=== PATIENT | female | born 1980 | race Caucasian/White ===

== ENCOUNTER 2016-05-23 20:09 | Emergency (ER) | payer OTHER ==
[~2016-05-23 20:09] MED LIST: /DULO30CA; /DULO30CA OR; /QUET10TA OR; ADDE5TAB5 PO; ALBUTEROL XX; ATARAX OR; CELE40TA OR; CONC18TA OR; DALMANE; FLAG500T; IMUR50TA PO; LYRI100C10 PO; PERC5TAB8 OR; PROV90AE; QUET30TA OR; RISP2TAB12 OR; TRAZ300T2 OR; VITA200016 PO; XANA1TAB2 PO; XANA2TAB2; [UNRECOGNIZED DRUG - OTHER] PO; cholestyramine OR
[2016-05-23 20:52] LABS: MEAN CORPUSCULAR HEMOGLOBIN 31.8 pg (27.0-33.0); MEAN CORPUSCULAR HGB CONC 34.3 g/dl (32.0-36.5); MEAN CORPUSCULAR VOLUME 92.7 fl (80.0-96.0); RED CELL DISTRIBUTION WIDTH 12.4 % (11.5-14.5); WHITE BLOOD COUNT 15.8 K/mm3 (4.0-10.0)
[2016-05-23 21:08] LABS: POTASSIUM SERUM 4.1 MEQ/L (3.5-5.1); SODIUM LEVEL 137 MEQ/L (136-145)
[2016-05-23 21:10] LABS: CONTROL LINE HCG INT CTR LINE PRESENT
[2016-05-23 21:28] LABS: ALBUMIN 4.2 GM/DL (3.2-5.2); ALBUMIN/GLOBULIN RATIO 1.35 (1.00-1.93); ALKALINE PHOSPHATASE 56 U/L (45-117); ALT/SGPT 21 U/L (12-78); ANION GAP 9 MEQ/L (8-16); AST/SGOT 28 U/L (15-37); BILIRUBIN,DIRECT < 0.1 MG/DL (0.0-0.2); BILIRUBIN,TOTAL 0.6 MG/DL (0.2-1.0); BLOOD UREA NITROGEN 5 MG/DL (7-18); CALCIUM LEVEL 8.5 MG/DL (8.5-10.1); CARBON DIOXIDE LEVEL 24 MEQ/L (21-32); CHLORIDE LEVEL 106 MEQ/L (98-107); CREATININE FOR GFR 0.76 MG/DL (0.55-1.02); GLOMERULAR FILTRATION RATE > 60.0 (>60); GLUCOSE, FASTING 92 MG/DL (70-105); TOTAL PROTEIN 7.3 GM/DL (6.4-8.2)
--- NOTE | 2016-05-23 22:10 | REPUSA ---
CT of the head Clinical history: syncope. Comparison: 12/21/2015. Technique: Multiple axial CT images were obtained through the head without administration of contrast . Findings: The ventricles and sulci are symmetric bilaterally. There is no evidence of acute hemorrhag e or infarct. There is no midline shift, mass effect, or extra-axial fluid collection. The osseous st ructures are unremarkable. The visualized paranasal sinuses and mastoid air cells are clear. Impression: Negative study.
--- NOTE | 2016-05-23 22:58 | EDDOCDS ---
Physician Documentation [facility] Name: Gin Tubbs Age: 35 yrs Sex: Female : 1980 Arrival Date: 05/23/2016 Time: 20:09 Bed 3 Private MD: Disposition: 05/23/16 22:48 Patient has left against medical advice. Impression: Epilepsy and recurrent seizures. - Patients states they are going to Home/Self Care. - Condition is Improved. - Discharge Instructions: Seizure, Adult. Medication Reconciliation, Local Pharmacy Hours form. Follow up: Jerilyn Dumas; When: Call to arrange an appointment; Reason: To establish care. - Problem is an acute exacerbation. - Symptoms have improved. - Notes: YOU ARE ELECTING TO LEAVE AGAINST MEDICAL ADVICE. IF YOU CHANGE YOUR MIND, RETURN TO THE ER. Historical: - Allergies: Remicade; Bentyl; - Home Meds: 1. Xanax 1 mg Oral tab 1 tab four times a day 2. Ventolin Rotahaler/Rotacaps Inhl as needed 3. Percocet 5-325 mg Oral tab 1 tab every 4-6 hours 4. omeprazole 40 mg Oral cpDR 1 cap once daily 5. Adderall XR 10 mg Oral cp24 1 cap three times a day 6. Sonata 10 mg oral cap 1 cap once daily 7. trazodone 250 mg Oral tab once daily 8. Zoloft 100 mg Oral tab once daily - PMHx: Chronic Back pain; Chron's Disease; IBS; Borderline Personality Disorder; - PSHx: Tubal ligation; Colon Resection; hemorroidectomy and anal fissure; - Social history: Smoking status: Patient uses tobacco products, current every day smoker. No barriers to communication noted, The patient speaks fluent [place]se. - : The pt / caregiver states he / she is not on anticoagulants. Home medication list is obtained from the patient. - Exposure Risk Screening:: None identified. SOFTWARE APPLICATIONS DESIGNER: 05/23 20:24 LMP N/A - control method af2 Vital Signs: 20:24 BP 148 / 74; Pulse 93; Resp 18; Temp 99.4(TE); Pulse Ox 96% on R/A; Weight 87.09 kg / af2 192 lbs (R); Height 5 ft. 8 in. (172.72 cm) (R); Pain 6/10; 20:51 BP 141 / 96 (auto/); af2 20:51 Pulse 86 MON; Resp 18 S; Pulse Ox 96% on R/A; af2 20:54 BP 134 / 79 (auto/); af2 20:54 Pulse 75 MON; Resp 18 S; Pulse Ox 99% on R/A; af2 20:57 BP 140 / 80 (auto/); af2 20:57 Pulse 78 MON; Resp 18 S; Pulse Ox 99% on R/A; af2 21:00 BP 140 / 78 (auto/); af2 21:00 Pulse 75 MON; Resp 18 S; Pulse Ox 99% on R/A; af2 21:51 BP 137 / 68 (auto/); af2 21:51 Pulse 89 MON; Resp 18 S; Pulse Ox 99% on R/A; af2 20:24 Body Mass Index 29.19 (87.09 kg, 172.72 cm) af2 MDM: 20:39 Consult PFS/PSA/Custom Garment Designer ordered. mm11 20:39 Consult PFS/PSA/Custom Garment Designer: Patient's case requires discussion with on-call mm11 Psychiatrist ordered. 20:39 PSA/PFS to call Nursing Electric Range Preparer, to enter patient data on [place] Safe Act if patient mm11 involuntarily admitted or transferred for SI or HI ordered. 20:39 Confirm accurate psychiatric medication list and times of last dosage ordered. mm11 20:39 Detain Pt Until Medically/PFS Cleared ordered. mm11 20:39 IV Saline Lock ordered. mm11 20:39 NS 0.9% 1000 ml IV at bolus once ordered. mm11 20:40 Acetaminophen Level Ordered. EDMS 20:40 Basic Metabolic Profile Ordered. EDMS 20:40 Complete Blood Count Ordered. EDMS 20:40 Drug Eval Toxicology ED Only Ordered. EDMS 20:40 Ethyl Alcohol (ethanol) Ordered. EDMS 20:40 HCG,Serum Qualitative Ordered. EDMS 20:40 Liver Profile Ordered. EDMS 20:40 Salicylate Level Ordered. EDMS 20:40 Thyroid Stimulating Hormone Ordered. EDMS 20:41 ECG WITH READING ER PHYS+CARDIAG ordered. EDMS 20:41 CT Head Without Contrast Ordered. EDMS 20:42 Lactic Acid (Smith tube on ice) Ordered. EDMS 21:14 Financial registration complete. zo 21:16 [facility] Payment Agreement was scanned into [employer] and attached to record. zo 21:49 Acetaminophen Level Reviewed. mm11 21:49 Basic Metabolic Profile Reviewed. mm11 21:49 Complete Blood Count Reviewed. mm11 21:49 Salicylate Level Reviewed. mm11 21:49 Ethyl Alcohol (ethanol) Reviewed. mm11 21:49 HCG,Serum Qualitative Reviewed. mm11 21:49 Liver Profile Reviewed. mm11 21:49 Thyroid Stimulating Hormone Reviewed. mm11 21:49 Lactic Acid (Smith tube on ice) Reviewed. mm11 22:40 CT Head Without Contrast Reviewed. mm11 22:50 Consult PFS/PSA/Custom Garment Designer complete. cl 22:50 Consult PFS/PSA/Custom Garment Designer: Patient's case requires discussion with on-call cl Psychiatrist complete. 22:50 PSA/PFS to call Nursing Electric Range Preparer, to enter patient data [place] Safe [place] if patient cl involuntarily admitted or transferred for SI or HI complete. Administered Medications: 21:32 Drug: NS 0.9% 1000 ml [sodium chloride 0.9 % intravenous solution] Route: IV; Rate: af2 bolus; Site: left antecubital; Signatures: Dispatcher [employer] EDMS Jesús Gaspar PSA PSA cl Gianfranco Maldonado Matthew, DO mm11 Erin Dodson,RN RN af2 The chart was reviewed and I authenticate all verbal orders and agree with the evaluation and treatment provided.Attachments: 21:16 [facility] Payment Agreement zo MTDD
--- NOTE | 2016-05-23 22:59 | EDDOCDS ---
Nurse's Notes [facility] Name: Gin Tubbs Age: 35 yrs Sex: Female : 1980 Arrival Date: 05/23/2016 Time: 20:09 Bed 3 Private MD: Diagnosis: Epilepsy and recurrent seizures Presentation: 05/23 20:14 Presenting complaint: EMS states: initial call for seizure, pt overdosed on Xanax and af2 Percocet- bottles found empty. Pt combative at scene, will not admit to overdose. Pt not responding appropriately, states "pepperoni." Pt stating "I will not stay here.". Adult Sepsis Screening: The patient does not have new or worsening altered mentation. Patient's respiratory rate is less than 22. Systolic blood pressure is greater than 100. Patient has a qSOFA score of 0- Negative Sepsis Screen. Suicide/Homicide risk assessment- the patient denies having any suicidal and/or homicidal ideations and does not present with any other emotional, behavioral or mental health complaints. Status: Patient is not a vehicle service attendant or dependent. Transition of care: patient was not received from another setting of care. 20:14 Acuity: KATARINA Level 3 af2 20:14 Method Of Arrival: Ambulance af2 Triage Assessment: 20:25 General: Appears in no apparent distress, Behavior is cooperative. Pain: Denies pain. af2 Pt Declines HIV testing. The patient is triaged at the bedside. See Assessment in Nurses Notes section of ED record. Neurological: Level of Consciousness is awake, alert, obeys commands. Respiratory: Airway is patent Respiratory effort is even, unlabored. Derm: Skin is normal. CHEMICAL RESEARCH WORKER: 20:24 LMP N/A - control method af2 Historical: - Allergies: Remicade; Bentyl; - Home Meds: 1. Xanax 1 mg Oral tab 1 tab four times a day 2. Ventolin Rotahaler/Rotacaps Inhl as needed 3. Percocet 5-325 mg Oral tab 1 tab every 4-6 hours 4. omeprazole 40 mg Oral cpDR 1 cap once daily 5. Adderall XR 10 mg Oral cp24 1 cap three times a day 6. Sonata 10 mg oral cap 1 cap once daily 7. trazodone 250 mg Oral tab once daily 8. Zoloft 100 mg Oral tab once daily - PMHx: Chronic Back pain; Chron's Disease; IBS; Borderline Personality Disorder; - PSHx: Tubal ligation; Colon Resection; hemorroidectomy and anal fissure; - Social history: Smoking status: Patient uses tobacco products, current every day smoker. No barriers to communication noted, The patient speaks fluent [place]se. - : The pt / caregiver states he / she is not on anticoagulants. Home medication list is obtained from the patient. - Exposure Risk Screening:: None identified. Screenin:55 Screening information is obtained from the patient. Fall risk: No risks identified. af2 Assistance ADL's: requires no assistance with activities of daily living. Abuse/DV Screen: The patient / caregiver reports he/she is: not in a situation that causes fear, pain or injury. Nutritional screening: No deficits noted. Advance Directives: Currently, there is no health care proxy. home support is adequate. Assessment: 20:54 General: Appears in no apparent distress, Behavior is cooperative, pt shouts "I af2 remember something, I was doing the dishes and felt dizzy. Then I had the seizure.". Cardiovascular: Rhythm is sinus rhythm No ectopy. Respiratory: Airway is patent Respiratory effort is even, unlabored. Derm: Skin is normal. 21:32 General: Appears in no apparent distress, Behavior is cooperative, pt seated on af2 stretcher, SO at bedside.. Cardiovascular: Rhythm is sinus rhythm No ectopy. Respiratory: Airway is patent Respiratory effort is even, unlabored. Derm: Skin is normal. 22:02 General: Appears in no apparent distress, Behavior is cooperative. Neurological: Level af2 of Consciousness is awake, alert, obeys commands, Oriented to person, place, time. Cardiovascular: Rhythm is sinus rhythm No ectopy. Respiratory: Airway is patent Respiratory effort is even, unlabored, Respiratory pattern is regular, symmetrical, Breath sounds are clear bilaterally. Derm: Skin is normal. 22:56 General: Appears in no apparent distress, comfortable, Behavior is cooperative. af2 Neurological: Level of Consciousness is awake, alert, obeys commands. Respiratory: Airway is patent Respiratory effort is even, unlabored. Derm: Skin is normal. Vital Signs: 20:24 BP 148 / 74; Pulse 93; Resp 18; Temp 99.4(TE); Pulse Ox 96% on R/A; Weight 87.09 kg af2 (R); Height 5 ft. 8 in. (172.72 cm) (R); Pain 6/10; 20:51 BP 141 / 96 (auto/); af2 20:51 Pulse 86 MON; Resp 18 S; Pulse Ox 96% on R/A; af2 20:54 BP 134 / 79 (auto/); af2 20:54 Pulse 75 MON; Resp 18 S; Pulse Ox 99% on R/A; af2 20:57 BP 140 / 80 (auto/); af2 20:57 Pulse 78 MON; Resp 18 S; Pulse Ox 99% on R/A; af2 21:00 BP 140 / 78 (auto/); af2 21:00 Pulse 75 MON; Resp 18 S; Pulse Ox 99% on R/A; af2 21:51 BP 137 / 68 (auto/); af2 21:51 Pulse 89 MON; Resp 18 S; Pulse Ox 99% on R/A; af2 20:24 Body Mass Index 29.19 (87.09 kg, 172.72 cm) af2 Vitals: 20:24 Log In Time N/A - ambulance arrival. af2 ED Course: 20:10 Erin DodsonRN is Primary Nurse. jlm 20:10 Patient visited by Ophelia Chiu, Billing Specialist. jlm 20:10 Patient moved to [facility] 20:16 Suhail Kaba DO is Attending Physician. mm11 20:16 Patient visited by Suhail Kaba DO. mm11 20:19 Triage Initiated af2 20:25 Patient visited by Erin Dodson RN. af2 20:38 Patient visited by Suhail Kaba DO. mm11 20:48 Pt greeted and oriented to ED. Patient advised of names of staff involved in care, rs6 location of call [place], wait times and NPO status. Accompanied by Law Enforcement, Patient has correct armband on for positive identification. Placed in psych safe attire. Bed in low position. Call light in reach. Side rails up X2. Property removed. playground monitor on. Pulse ox on. NIBP on. 20:48 EKG done. (by ED staff). Reviewed by Suhail Kaba DO. rs6 20:55 Patient visited by Erin Dodson RN. af2 20:55 Inserted saline lock: 20 gauge in left antecubital area and blood collected. The af2 patient tolerated the procedure well. 21:16 [facility] Payment Agreement was scanned into [employer] and attached to record. zo 21:34 Patient visited by Erin Dodson RN. af2 22:04 Patient visited by Erin Dodson RN. af2 22:22 CT Head Without Contrast Returned. EDMS 22:40 Patient visited by Suhail Kaba DO. mm11 22:47 Jerilyn Dumas is Referral Physician. mm11 22:57 Discontinued IV lock intact, bleeding controlled, pressure dressing applied, No af2 redness/swelling at site. No procedures done that require assistance. Administered Medications: 21:32 Drug: NS 0.9% 1000 ml [sodium chloride 0.9 % intravenous solution] Route: IV; Rate: af2 bolus; Site: left antecubital; Order Results: Lab Order: Acetaminophen Level; SPEC'M 05/23/16 20:44 Test: ACETAMINOPHEN LEVEL; Value: < 2.0; Range: 10.0-30.0; Abnormal: Below low normal; Units: UG/ML; Status: F Lab Order: Basic Metabolic Profile; SPEC'M 05/23/16 20:44 Test: GLUCOSE, FASTING; Value: 92; Range: 70-105; Units: MG/DL; Status: F Test: BLOOD UREA NITROGEN; Value: 5; Range: 7-18; Abnormal: Below low normal; Units: MG/DL; Status: F Test: CREATININE FOR GFR; Value: 0.76; Range: 0.55-1.02; Units: MG/DL; Status: F Test: SODIUM LEVEL; Value: 137; Range: 136-145; Units: MEQ/L; Status: F Test: POTASSIUM SERUM; Value: 4.1; Range: 3.5-5.1; Units: MEQ/L; Status: F Test: CHLORIDE LEVEL; Range: 98-107; Units: MEQ/L; Status: I Test: CARBON DIOXIDE LEVEL; Range: 21-32; Units: MEQ/L; Status: I Test: ANION GAP; Range: 8-16; Units: MEQ/L; Status: I Test: CALCIUM LEVEL; Range: 8.5-10.1; Units: MG/DL; Status: I Test: GLOMERULAR FILTRATION RATE; Value: > 60.0; Range: >60; Status: F Test: SODIUM LEVEL; Value: 137; Range: 136-145; Units: MEQ/L; Status: F Test: POTASSIUM SERUM; Value: 4.1; Range: 3.5-5.1; Units: MEQ/L; Status: F Test: CHLORIDE LEVEL; Value: 106; Range: 98-107; Units: MEQ/L; Status: F Test: CARBON DIOXIDE LEVEL; Value: 24; Range: 21-32; Units: MEQ/L; Status: F Test: ANION GAP; Value: 9; Range: 8-16; Units: MEQ/L; Status: F Test: CALCIUM LEVEL; Value: 8.5; Range: 8.5-10.1; Units: MG/DL; Status: F Test Note: ; Units are mL/min/1.73 m2 Chronic Kidney Disease Staging per NKF: Stage I & II GFR >=60 Normal to Mildly Decreased Stage III GFR 30-59 Moderately Decreased Stage IV GFR 15-29 Severely Decreased Stage V GFR <15 Very Little GFR Left ESRD GFR <15 on SHREDDER PICKER Lab Order: Complete Blood Count; [facility] 05/23/16 20:44 Test: WHITE BLOOD COUNT; Value: 15.8; Range: 4.0-10.0; Abnormal: Above high normal; Units: K/mm3; Status: F Test: RED BLOOD COUNT; Value: 4.61; Range: 4.00-5.40; Units: M/mm3; Status: F Test: HEMOGLOBIN; Value: 14.7; Range: 12.0-16.0; Units: g/dl; Status: F Test: HEMATOCRIT; Value: 42.8; Range: 36.0-47.0; Units: %; Status: F Test: MEAN CORPUSCULAR VOLUME; Value: 92.7; Range: 80.0-96.0; Units: fl; Status: F Test: MEAN CORPUSCULAR HEMOGLOBIN; Value: 31.8; Range: 27.0-33.0; Units: pg; Status: F Test: MEAN CORPUSCULAR HGB CONC; Value: 34.3; Range: 32.0-36.5; Units: g/dl; Status: F Test: RED CELL DISTRIBUTION WIDTH; Value: 12.4; Range: 11.5-14.5; Units: %; Status: F Test: PLATELET COUNT, AUTOMATED; Value: 184; Range: 150-450; Units: k/mm3; Status: F Lab Order: Ethyl Alcohol (ethanol); 05/23/16 20:44 Test: ETHYL ALCOHOL (ETHANOL); Value: < 0.003; Range: 0.000-0.010; Units: %; Status: F Lab Order: HCG,Serum Qualitative; 05/23/16 Test: HCG, SERUM QUALITATIVE; Value: NEGATIVE; Range: NEGATIVE; Status: F Lab Order: Liver Profile; 05/23/16:44 Test: AST/SGOT; Value: 28; Range: 15-37; Units: U/L; Status: F Test: ALT/SGPT; Value: 21; Range: 12-78; Units: U/L; Status: F Test: ALKALINE PHOSPHATASE; Value: 56; Range: 45-117; Units: U/L; Status: F Test: BILIRUBIN,TOTAL; Value: 0.6; Range: 0.2-1.0; Units: MG/DL; Status: F Test: BILIRUBIN,DIRECT; Value: < 0.1; Range: 0.0-0.2; Units: MG/DL; Status: F Test: TOTAL PROTEIN; Value: 7.3; Range: 6.4-8.2; Units: GM/DL; Status: F Test: ALBUMIN; Value: 4.2; Range: 3.2-5.2; Units: GM/DL; Status: F Test: ALBUMIN/GLOBULIN RATIO; Value: 1.35; Range: 1.00-1.93; Status: F Lab Order: Salicylate Level; 05/23/16:44 Test: SALICYLATE LEVEL; Value: 3.2; Range: 5.0-30.0; Abnormal: Below low normal; Units: MG/DL; Status: F Lab Order: Thyroid Stimulating Hormone; 05/23/16:44 Test: THYROID STIMULATING HORMONE; Value: 1.310; Range: 0.358-3.740; Units: uIU/ML; Status: F Lab Order: Lactic Acid (Smith tube on ice); 05/23/16 21:09 Test: LACTIC ACID SEPSIS PROTOCOL; Value: 1.3; Range: 0.4-2.0; Units: MMOL/L; Status: F Radiology Order: CT Head Without Contrast Test: CT Head Without Contrast REASON FOR EXAMINATION: Syncope; ; CT of the head; Clinical history: syncope.; Comparison: 12/21/2015.; Technique: Multiple axial CT images were obtained through the head without administration of contrast; .; Findings: The ventricles and sulci are symmetric bilaterally. There is no evidence of acute hemorrhag; e or infarct. There is no midline shift, mass effect, or extra-axial fluid collection. The osseous st; ructures are unremarkable. The visualized paranasal sinuses and mastoid air cells are clear.; Impression: Negative study.; ; Outcome: 22:48 Patient left against medical advice. mm11 22:57 Discharge Assessment: Patient awake, alert and oriented x 3. No cognitive and/or af2 functional deficits noted. Patient verbalized understanding of disposition instructions. patient administered narcotics - no. The patient is leaving AMA: AMA form signed, Notification of AMA status is made to the charge nurse, the social work lecturer, the ED attending physician. 22:57 Patient left the ED. af2 Signatures: Dispatcher [employer] EDMS Gianfranco Maldonado Matthew, DO DO mm11 Ophelia Chiu, Billing Specialist Unit Yeimy Oliva, BOX OFFICE CLERK BOX OFFICE CLERK rs6 Erin Dodson,RN RN af2 MTDD
--- NOTE | 2016-05-24 12:54 | ECGEPIP ---
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
--- NOTE | 2016-05-25 23:59 | EDDOCDS ---
Nurse's Notes [facility] Name: Kale Tubbs Age: 35 yrs Sex: Female : 1980 Arrival Date: 05/23/2016 Time: 20:09 Bed 3 Private MD: Diagnosis: Epilepsy and recurrent seizures Presentation: 05/23 20:14 Presenting complaint: EMS states: initial call for seizure, pt overdosed on Xanax and af2 Percocet- bottles found empty. Pt combative at scene, will not admit to overdose. Pt not responding appropriately, states "pepperoni." Pt stating "I will not stay here.". Adult Sepsis Screening: The patient does not have new or worsening altered mentation. Patient's respiratory rate is less than 22. Systolic blood pressure is greater than 100. Patient has a qSOFA score of 0- Negative Sepsis Screen. Suicide/Homicide risk assessment- the patient denies having any suicidal and/or homicidal ideations and does not present with any other emotional, behavioral or mental health complaints. Status: Patient is not a instructional services librarian or dependent. Transition of care: patient was not received from another setting of care. 20:14 Acuity: KATARINA Level 3 af2 20:14 Method Of Arrival: Ambulance af2 Triage Assessment: 20:25 General: Appears in no apparent distress, Behavior is cooperative. Pain: Denies pain. af2 Pt Declines HIV testing. The patient is triaged at the bedside. See Assessment in Nurses Notes section of ED record. Neurological: Level of Consciousness is awake, alert, obeys commands. Respiratory: Airway is patent Respiratory effort is even, unlabored. Derm: Skin is normal. ALUMINUM POLISHER: 20:24 LMP N/A - control method af2 Historical: - Allergies: Remicade; Bentyl; - Home Meds: 1. Xanax 1 mg Oral tab 1 tab four times a day 2. Ventolin Rotahaler/Rotacaps Inhl as needed 3. Percocet 5-325 mg Oral tab 1 tab every 4-6 hours 4. omeprazole 40 mg Oral cpDR 1 cap once daily 5. Adderall XR 10 mg Oral cp24 1 cap three times a day 6. Sonata 10 mg oral cap 1 cap once daily 7. trazodone 250 mg Oral tab once daily 8. Zoloft 100 mg Oral tab once daily - PMHx: Chronic Back pain; Chron's Disease; IBS; Borderline Personality Disorder; - PSHx: Tubal ligation; Colon Resection; hemorroidectomy and anal fissure; - Social history: Smoking status: Patient uses tobacco products, current every day smoker. No barriers to communication noted, The patient speaks fluent [place] Korean. - : The pt / caregiver states he / she is not on anticoagulants. Home medication list is obtained from the patient. - Exposure Risk Screening:: None identified. Screenin:55 Screening information is obtained from the patient. Fall risk: No risks identified. af2 Assistance ADL's: requires no assistance with activities of daily living. Abuse/DV Screen: The patient / caregiver reports he/she is: not in a situation that causes fear, pain or injury. Nutritional screening: No deficits noted. Advance Directives: Currently, there is no health care proxy. home support is adequate. Assessment: 20:54 General: Appears in no apparent distress, Behavior is cooperative, pt shouts "I af2 remember something, I was doing the dishes and felt dizzy. Then I had the seizure.". Cardiovascular: Rhythm is sinus rhythm No ectopy. Respiratory: Airway is patent Respiratory effort is even, unlabored. Derm: Skin is normal. 21:32 General: Appears in no apparent distress, Behavior is cooperative, pt seated on af2 stretcher, SO at bedside.. Cardiovascular: Rhythm is sinus rhythm No ectopy. Respiratory: Airway is patent Respiratory effort is even, unlabored. Derm: Skin is normal. 22:02 General: Appears in no apparent distress, Behavior is cooperative. Neurological: Level af2 of Consciousness is awake, alert, obeys commands, Oriented to person, place, time. Cardiovascular: Rhythm is sinus rhythm No ectopy. Respiratory: Airway is patent Respiratory effort is even, unlabored, Respiratory pattern is regular, symmetrical, Breath sounds are clear bilaterally. Derm: Skin is normal. 22:56 General: Appears in no apparent distress, comfortable, Behavior is cooperative. af2 Neurological: Level of Consciousness is awake, alert, obeys commands. Respiratory: Airway is patent Respiratory effort is even, unlabored. Derm: Skin is normal. Social Work Consult: 23:04 LWBS/AMA AMA: Patient is refusing further stabilizing treatment at [facility], although cl offered treatment regardless of method of payment or ability to pay. Patient is aware that this action is being undertaken against the advice of the medical staff at [facility]. Pt. has capacity to understand the potential consequences of this choice. pt did notify ED staff. Patient / guardian did sign Refusal of Services form. Pt left before being seen by PSA. Vital Signs: 20:24 BP 148 / 74; Pulse 93; Resp 18; Temp 99.4(TE); Pulse Ox 96% on R/A; Weight 87.09 kg af2 (R); Height 5 ft. 8 in. (172.72 cm) (R); Pain 6/10; 20:51 BP 141 / 96 (auto/); af2 20:51 Pulse 86 MON; Resp 18 S; Pulse Ox 96% on R/A; af2 20:54 BP 134 / 79 (auto/); af2 20:54 Pulse 75 MON; Resp 18 S; Pulse Ox 99% on R/A; af2 20:57 BP 140 / 80 (auto/); af2 20:57 Pulse 78 MON; Resp 18 S; Pulse Ox 99% on R/A; af2 21:00 BP 140 / 78 (auto/); af2 21:00 Pulse 75 MON; Resp 18 S; Pulse Ox 99% on R/A; af2 21:51 BP 137 / 68 (auto/); af2 21:51 Pulse 89 MON; Resp 18 S; Pulse Ox 99% on R/A; af2 20:24 Body Mass Index 29.19 (87.09 kg, 172.72 cm) af2 Vitals: 20:24 Log In Time N/A - ambulance arrival. af2 ED Course: 20:10 Erin Dodson RN is Primary Nurse. jlm 20:10 Patient visited by Ophelia Chiu, Dough Molder Hand. jlm 20:10 Patient moved to 3 jl 20:16 Sonya Kaba DO is Attending Physician. mm11 20:16 Patient visited by Sonya Kaba DO. mm11 20:19 Triage Initiated af2 20:25 Patient visited by Erin Dodson RN. af2 20:38 Patient visited by Sonya Kaba DO. mm11 20:48 Pt greeted and oriented to ED. Patient advised of names of staff involved in care, rs6 location of call hercules, wait times and NPO status. Accompanied by Law Enforcement, Patient has correct armband on for positive identification. Placed in psych safe attire. Bed in low position. Call light in reach. Side rails up X2. Property removed. gaming manager on. Pulse ox on. NIBP on. 20:48 EKG done. (by ED staff). Reviewed by Sonya Kaba DO. rs6 20:55 Patient visited by Erin Dodson RN. af2 20:55 Inserted saline lock: 20 gauge in left antecubital area and blood collected. The af2 patient tolerated the procedure well. 21:16 [facility] Payment Agreement was scanned into [employer] and attached to record. zo 21:34 Patient visited by Erin Dodson RN. af2 22:04 Patient visited by Erin Dodson RN. af2 22:22 CT Head Without Contrast Returned. EDMS 22:40 Patient visited by Sonya Kaba DO. mm11 22:47 Jerilyn Dumas is Referral Physician. mm11 22:57 Discontinued IV lock intact, bleeding controlled, pressure dressing applied, No af2 redness/swelling at site. No procedures done that require assistance. 05/24 10:24 T-Sheet-- Draft Copy was scanned into [employer] and attached to record. gb 13:27 EKG-ADULT Returned. EDMS 16:18 Refusal of Services was scanned into [employer] and attached to record. gb 17:38 ECG/EKG was scanned into [employer] and attached to record. gb Administered Medications: 05/23 21:32 Drug: NS 0.9% 1000 ml [sodium chloride 0.9 % intravenous solution] Route: IV; Rate: af2 bolus; Site: left antecubital; Attachments: 16:18 Refusal of Services gb Order Results: Lab Order: Acetaminophen Level; SPEC'M 05/23/16 20:44 Test: ACETAMINOPHEN LEVEL; Value: < 2.0; Range: 10.0-30.0; Abnormal: Below low normal; Units: UG/ML; Status: F Lab Order: Basic Metabolic Profile; SPEC'M 05/23/16 20:44 Test: GLUCOSE, FASTING; Value: 92; Range: 70-105; Units: MG/DL; Status: F Test: BLOOD UREA NITROGEN; Value: 5; Range: 7-18; Abnormal: Below low normal; Units: MG/DL; Status: F Test: CREATININE FOR GFR; Value: 0.76; Range: 0.55-1.02; Units: MG/DL; Status: F Test: SODIUM LEVEL; Value: 137; Range: 136-145; Units: MEQ/L; Status: F Test: POTASSIUM SERUM; Value: 4.1; Range: 3.5-5.1; Units: MEQ/L; Status: F Test: CHLORIDE LEVEL; Range: 98-107; Units: MEQ/L; Status: I Test: CARBON DIOXIDE LEVEL; Range: 21-32; Units: MEQ/L; Status: I Test: ANION GAP; Range: 8-16; Units: MEQ/L; Status: I Test: CALCIUM LEVEL; Range: 8.5-10.1; Units: MG/DL; Status: I Test: GLOMERULAR FILTRATION RATE; Value: > 60.0; Range: >60; Status: F Test: SODIUM LEVEL; Value: 137; Range: 136-145; Units: MEQ/L; Status: F Test: POTASSIUM SERUM; Value: 4.1; Range: 3.5-5.1; Units: MEQ/L; Status: F Test: CHLORIDE LEVEL; Value: 106; Range: 98-107; Units: MEQ/L; Status: F Test: CARBON DIOXIDE LEVEL; Value: 24; Range: 21-32; Units: MEQ/L; Status: F Test: ANION GAP; Value: 9; Range: 8-16; Units: MEQ/L; Status: F Test: CALCIUM LEVEL; Value: 8.5; Range: 8.5-10.1; Units: MG/DL; Status: F Test Note: ; Units are mL/min/1.73 m2 Chronic Kidney Disease Staging per NKF: Stage I & II GFR >=60 Normal to Mildly Decreased Stage III GFR 30-59 Moderately Decreased Stage IV GFR 15-29 Severely Decreased Stage V GFR <15 Very Little GFR Left ESRD GFR <15 on TANK FARM GAUGER Lab Order: Complete Blood Count; SPEC'M 05/23/16 20:44 Test: WHITE BLOOD COUNT; Value: 15.8; Range: 4.0-10.0; Abnormal: Above high normal; Units: K/mm3; Status: F Test: RED BLOOD COUNT; Value: 4.61; Range: 4.00-5.40; Units: M/mm3; Status: F Test: HEMOGLOBIN; Value: 14.7; Range: 12.0-16.0; Units: g/dl; Status: F Test: HEMATOCRIT; Value: 42.8; Range: 36.0-47.0; Units: %; Status: F Test: MEAN CORPUSCULAR VOLUME; Value: 92.7; Range: 80.0-96.0; Units: fl; Status: F Test: MEAN CORPUSCULAR HEMOGLOBIN; Value: 31.8; Range: 27.0-33.0; Units: pg; Status: F Test: MEAN CORPUSCULAR HGB CONC; Value: 34.3; Range: 32.0-36.5; Units: g/dl; Status: F Test: RED CELL DISTRIBUTION WIDTH; Value: 12.4; Range: 11.5-14.5; Units: %; Status: F Test: PLATELET COUNT, AUTOMATED; Value: 184; Range: 150-450; Units: k/mm3; Status: F Lab Order: Ethyl Alcohol (ethanol); [facility] 05/23/16 20:44 Test: ETHYL ALCOHOL (ETHANOL); Value: < 0.003; Range: 0.000-0.010; Units: %; Status: F Lab Order: HCG,Serum Qualitative; [facility] 05/23/16 20:44 Test: HCG, SERUM QUALITATIVE; Value: NEGATIVE; Range: NEGATIVE; Status: F Lab Order: Liver Profile; [facility] 05/23/16 20:44 Test: AST/SGOT; Value: 28; Range: 15-37; Units: U/L; Status: F Test: ALT/SGPT; Value: 21; Range: 12-78; Units: U/L; Status: F Test: ALKALINE PHOSPHATASE; Value: 56; Range: 45-117; Units: U/L; Status: F Test: BILIRUBIN,TOTAL; Value: 0.6; Range: 0.2-1.0; Units: MG/DL; Status: F Test: BILIRUBIN,DIRECT; Value: < 0.1; Range: 0.0-0.2; Units: MG/DL; Status: F Test: TOTAL PROTEIN; Value: 7.3; Range: 6.4-8.2; Units: GM/DL; Status: F Test: ALBUMIN; Value: 4.2; Range: 3.2-5.2; Units: GM/DL; Status: F Test: ALBUMIN/GLOBULIN RATIO; Value: 1.35; Range: 1.00-1.93; Status: F Lab Order: Salicylate Level; SPEC'M 05/23/16 20:44 Test: SALICYLATE LEVEL; Value: 3.2; Range: 5.0-30.0; Abnormal: Below low normal; Units: MG/DL; Status: F Lab Order: Thyroid Stimulating Hormone; SPEC'M 05/23/16 20:44 Test: THYROID STIMULATING HORMONE; Value: 1.310; Range: 0.358-3.740; Units: uIU/ML; Status: F Lab Order: Lactic Acid (Smith tube on ice); SPEC'M 05/23/16 21:09 Test: LACTIC ACID SEPSIS PROTOCOL; Value: 1.3; Range: 0.4-2.0; Units: MMOL/L; Status: F Radiology Order: EKG-ADULT Test: EKG-ADULT REASON FOR EXAMINATION: Syncope; Stationary ECG Study; [facility] - ED; ; Test Date: 2016-05-23; Pat Name: KALE TUBBS Department:; Room: -; Gender: F Adult Parole Officer: rs; : 1980 Requested By: SONYA Mills; Order Number: [id number] Reading MD: Sheryl Edmond; Measurements; Intervals [place]; Rate: 73 P: 21; MN: 146 QRS: 28; QRSD: 92 T: 36; QT: 400; QTc: 443; Interpretive Statements; SINUS RHYTHM; NONSPECIFIC T-WAVE ABNORMALITY; NO OLD ECG TO COMPARE; Electronically Signed On 05-24-2016 12:53:37 EST by Sheryl Edmond; Radiology Order: CT Head Without Contrast Test: CT Head Without Contrast REASON FOR EXAMINATION: Syncope; ; CT of the head; Clinical history: syncope.; Comparison: 12/21/2015.; Technique: Multiple axial CT images were obtained through the head without administration of contrast; .; Findings: The ventricles and sulci are symmetric bilaterally. There is no evidence of acute hemorrhag; e or infarct. There is no midline shift, mass effect, or extra-axial fluid collection. The osseous st; ructures are unremarkable. The visualized paranasal sinuses and mastoid air cells are clear.; Impression: Negative study.; ; Outcome: 05/23 22:48 Patient left against medical advice. mm11 22:57 Discharge Assessment: Patient awake, alert and oriented x 3. No cognitive and/or af2 functional deficits noted. Patient verbalized understanding of disposition instructions. patient administered narcotics - no. The patient is leaving AMA: AMA form signed, Notification of AMA status is made to the charge nurse, the social work professor, the ED attending physician. 22:57 Patient left the ED. af2 Signatures: Dispatcher [employer] EDMS Jesús Gaspar, BRYCE PSA cl Mery Patterson, Denis Reg gb Gianfranco Maldonado Matthew, DO mm11 Ophelia Chiu, Dough Molder Hand Unit Yeimy Oliva, EILEEN RAILROAD HAND rs6 Erin Dodson,RN RN af2 Chart Complete [facility]
--- NOTE | 2016-05-25 23:59 | EDDOCDS ---
Physician Documentation [facility] Name: Gin Tubbs Age: 35 yrs Sex: Female : 1980 Arrival Date: 05/23/2016 Time: 20:09 Bed 3 Private MD: Disposition: 05/23/16 22:48 Patient has left against medical advice. Impression: Epilepsy and recurrent seizures. - Patients states they are going to Home/Self Care. - Condition is Improved. - Discharge Instructions: Seizure, Adult. Medication Reconciliation, Local Pharmacy Hours form. Follow up: Jerilyn Dumas; When: Call to arrange an appointment; Reason: To establish care. - Problem is an acute exacerbation. - Symptoms have improved. - Notes: YOU ARE ELECTING TO LEAVE AGAINST MEDICAL ADVICE. IF YOU CHANGE YOUR MIND, RETURN TO THE ER. Historical: - Allergies: Remicade; Bentyl; - Home Meds: 1. Xanax 1 mg Oral tab 1 tab four times a day 2. Ventolin Rotahaler/Rotacaps Inhl as needed 3. Percocet 5-325 mg Oral tab 1 tab every 4-6 hours 4. omeprazole 40 mg Oral cpDR 1 cap once daily 5. Adderall XR 10 mg Oral cp24 1 cap three times a day 6. Sonata 10 mg oral cap 1 cap once daily 7. trazodone 250 mg Oral tab once daily 8. Zoloft 100 mg Oral tab once daily - PMHx: Chronic Back pain; Chron's Disease; IBS; Borderline Personality Disorder; - PSHx: Tubal ligation; Colon Resection; hemorroidectomy and anal fissure; - Social history: Smoking status: Patient uses tobacco products, current every day smoker. No barriers to communication noted, The patient speaks fluent Cook Islander. - : The pt / caregiver states he / she is not on anticoagulants. Home medication list is obtained from the patient. - Exposure Risk Screening:: None identified. ESOL TEACHER: 05/23 20:24 LMP N/A - control method af2 Vital Signs: 20:24 BP 148 / 74; Pulse 93; Resp 18; Temp 99.4(TE); Pulse Ox 96% on R/A; Weight 87.09 kg / af2 192 lbs (R); Height 5 ft. 8 in. (172.72 cm) (R); Pain 6/10; 20:51 BP 141 / 96 (auto/); af2 20:51 Pulse 86 MON; Resp 18 S; Pulse Ox 96% on R/A; af2 20:54 BP 134 / 79 (auto/); af2 20:54 Pulse 75 MON; Resp 18 S; Pulse Ox 99% on R/A; af2 20:57 BP 140 / 80 (auto/); af2 20:57 Pulse 78 MON; Resp 18 S; Pulse Ox 99% on R/A; af2 21:00 BP 140 / 78 (auto/); af2 21:00 Pulse 75 MON; Resp 18 S; Pulse Ox 99% on R/A; af2 21:51 BP 137 / 68 (auto/); af2 21:51 Pulse 89 MON; Resp 18 S; Pulse Ox 99% on R/A; af2 20:24 Body Mass Index 29.19 (87.09 kg, 172.72 cm) af2 MDM: 20:39 Consult PFS/PSA/Relief Driller ordered. mm11 20:39 Consult PFS/PSA/Relief Driller: Patient's case requires discussion with on-call mm11 Psychiatrist ordered. 20:39 PSA/PFS to call Nursing Photograph Enlarger, to enter [place] data [place] if patient mm11 involuntarily admitted or transferred for SI or HI ordered. 20:39 Confirm accurate psychiatric medication list and times of last dosage ordered. mm11 20:39 Detain Pt Until Medically/PFS Cleared ordered. mm11 20:39 IV Saline Lock ordered. mm11 20:39 NS 0.9% 1000 ml IV at bolus once ordered. mm11 20:40 Acetaminophen Level Ordered. EDMS 20:40 Basic Metabolic Profile Ordered. EDMS 20:40 Complete Blood Count Ordered. EDMS 20:40 Drug Eval Toxicology ED Only Ordered. EDMS 20:40 Ethyl Alcohol (ethanol) Ordered. EDMS 20:40 HCG,Serum Qualitative Ordered. EDMS 20:40 Liver Profile Ordered. EDMS 20:40 Salicylate Level Ordered. EDMS 20:40 Thyroid Stimulating Hormone Ordered. EDMS 20:41 ECG WITH READING ER PHYS+CARDIAG ordered. EDMS 20:41 CT Head Without Contrast Ordered. EDMS 20:42 Lactic Acid (Smith tube on ice) Ordered. EDMS 21:14 Financial registration complete. zo 21:16 [facility] Payment Agreement was scanned into [employer] and attached to record. zo 21:49 Acetaminophen Level Reviewed. mm11 21:49 Basic Metabolic Profile Reviewed. mm11 21:49 Complete Blood Count Reviewed. mm11 21:49 Salicylate Level Reviewed. mm11 21:49 Ethyl Alcohol (ethanol) Reviewed. mm11 21:49 HCG,Serum Qualitative Reviewed. mm11 21:49 Liver Profile Reviewed. mm11 21:49 Thyroid Stimulating Hormone Reviewed. mm11 21:49 Lactic Acid (Smith tube on ice) Reviewed. mm11 22:40 CT Head Without Contrast Reviewed. mm11 22:50 Consult PFS/PSA/Relief Driller complete. cl 22:50 Consult PFS/PSA/Relief Driller: Patient's case requires discussion with on-call cl Psychiatrist complete. 22:50 PSA/PFS to call Nursing Photograph Enlarger, to [place] if patient cl involuntarily admitted or transferred for SI or HI complete. 05/24 10:24 T-Sheet-- Draft Copy was scanned into [employer] and attached to record. gb 16:18 Refusal of Services was scanned into [employer] and attached to record. gb 17:38 ECG/EKG was scanned into [employer] and attached to record. gb Administered Medications: 05/23 21:32 Drug: NS 0.9% 1000 ml [sodium chloride 0.9 % intravenous solution] Route: IV; Rate: af2 bolus; Site: left antecubital; Signatures: Dispatcher [employer] Jesús Dawn PSA PSA cl Mery Patterson, Reg Reg gb Gianfranco Maldonado Matthew, DO mm11 Erin Dodson,RN RN af2 The chart was reviewed and I authenticate all verbal orders and agree with the evaluation and treatment provided.Attachments: 21:16 [facility] Payment Agreement zo 05/24 10:24 T-Sheet-- Draft Copy gb 17:38 ECG/EKG gb Chart Complete MTDD
--- NOTE | 2016-05-25 23:59 | EDDOCDS ---
Physician Documentation [facility] Name: Gin Tubbs Age: 35 yrs Sex: Female : 1980 Arrival Date: 05/23/2016 Time: 20:09 Bed 3 Private MD: Disposition: 05/23/16 22:48 Patient has left against medical advice. Impression: Epilepsy and recurrent seizures. - Patients states they are going to Home/Self Care. - Condition is Improved. - Discharge Instructions: Seizure, Adult. Medication Reconciliation, Local Pharmacy Hours form. Follow up: Jerilyn Dumas; When: Call to arrange an appointment; Reason: To establish care. - Problem is an acute exacerbation. - Symptoms have improved. - Notes: YOU ARE ELECTING TO LEAVE AGAINST MEDICAL ADVICE. IF YOU CHANGE YOUR MIND, RETURN TO THE ER. Historical: - Allergies: Remicade; Bentyl; - Home Meds: 1. Xanax 1 mg Oral tab 1 tab four times a day 2. Ventolin Rotahaler/Rotacaps Inhl as needed 3. Percocet 5-325 mg Oral tab 1 tab every 4-6 hours 4. omeprazole 40 mg Oral cpDR 1 cap once daily 5. Adderall XR 10 mg Oral cp24 1 cap three times a day 6. Sonata 10 mg oral cap 1 cap once daily 7. trazodone 250 mg Oral tab once daily 8. Zoloft 100 mg Oral tab once daily - PMHx: Chronic Back pain; Chron's Disease; IBS; Borderline Personality Disorder; - PSHx: Tubal ligation; Colon Resection; hemorroidectomy and anal fissure; - Social history: Smoking status: Patient uses tobacco products, current every day smoker. No barriers to communication noted, The patient speaks fluent Czech. - : The pt / caregiver states he / she is not on anticoagulants. Home medication list is obtained from the patient. - Exposure Risk Screening:: None identified. 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 8 in. (172.72 cm) (R); Pain 6/10; 20:51 BP 141 / 96 (auto/); af2 20:51 Pulse 86 MON; Resp 18 S; Pulse Ox 96% on R/A; af2 20:54 BP 134 / 79 (auto/); af2 20:54 Pulse 75 MON; Resp 18 S; Pulse Ox 99% on R/A; af2 20:57 BP 140 / 80 (auto/); af2 20:57 Pulse 78 MON; Resp 18 S; Pulse Ox 99% on R/A; af2 21:00 BP 140 / 78 (auto/); af2 21:00 Pulse 75 MON; Resp 18 S; Pulse Ox 99% on R/A; af2 21:51 BP 137 / 68 (auto/); af2 21:51 Pulse 89 MON; Resp 18 S; Pulse Ox 99% on R/A; af2 20:24 Body Mass Index 29.19 (87.09 kg, 172.72 cm) af2 MDM: 20:39 Consult PFS/PSA/Postal Mail Carrier ordered. mm11 20:39 Consult PFS/PSA/Postal Mail Carrier: Patient's case requires discussion with on-call mm11 Psychiatrist ordered. 20:39 PSA/PFS to call Nursing Carbon Lamp Cleaner, to [place] if patient mm11 involuntarily admitted or transferred for SI or HI ordered. 20:39 Confirm accurate psychiatric medication list and times of last dosage ordered. mm11 20:39 Detain Pt Until Medically/PFS Cleared ordered. mm11 20:39 IV Saline Lock ordered. mm11 20:39 NS 0.9% 1000 ml IV at bolus once ordered. mm11 20:40 Acetaminophen Level Ordered. EDMS 20:40 Basic Metabolic Profile Ordered. EDMS 20:40 Complete Blood Count Ordered. EDMS 20:40 Drug Eval Toxicology ED Only Ordered. EDMS 20:40 Ethyl Alcohol (ethanol) Ordered. EDMS 20:40 HCG,Serum Qualitative Ordered. EDMS 20:40 Liver Profile Ordered. EDMS 20:40 Salicylate Level Ordered. EDMS 20:40 Thyroid Stimulating Hormone Ordered. EDMS 20:41 ECG WITH READING ER PHYS+CARDIAG ordered. EDMS 20:41 CT Head Without Contrast Ordered. EDMS 20:42 Lactic Acid (Smith tube on ice) Ordered. EDMS 21:14 Financial registration complete. zo 21:16 [facility] Payment Agreement was scanned into [employer] and attached to record. zo 21:49 Acetaminophen Level Reviewed. mm11 21:49 Basic Metabolic Profile Reviewed. mm11 21:49 Complete Blood Count Reviewed. mm11 21:49 Salicylate Level Reviewed. mm11 21:49 Ethyl Alcohol (ethanol) Reviewed. mm11 21:49 HCG,Serum Qualitative Reviewed. mm11 21:49 Liver Profile Reviewed. mm11 21:49 Thyroid Stimulating Hormone Reviewed. mm11 21:49 Lactic Acid (Smith tube on ice) Reviewed. mm11 22:40 CT Head Without Contrast Reviewed. mm11 22:50 Consult PFS/PSA/Postal Mail Carrier complete. cl 22:50 Consult PFS/PSA/Postal Mail Carrier: Patient's case requires discussion with on-call cl Psychiatrist complete. 22:50 PSA/PFS to call Nursing Carbon Lamp Cleaner, to [place] if patient cl involuntarily admitted or transferred for SI or HI complete. 05/24 10:24 T-Sheet-- Draft Copy was scanned into [employer] and attached to record. gb 16:18 Refusal of Services was scanned into [employer] and attached to record. gb 17:38 ECG/EKG was scanned into [employer] and attached to record. gb Administered Medications: 05/23 21:32 Drug: NS 0.9% 1000 ml [sodium chloride 0.9 % intravenous solution] Route: IV; Rate: af2 bolus; Site: left antecubital; Signatures: Dispatcher [employer] Jesús Dawn PSA PSA cl Mery Patterson, Reg Reg gb Gianfranco Maldonado Matthew, DO mm11 Erin Dodson,RN RN af2 The chart was reviewed and I authenticate all verbal orders and agree with the evaluation and treatment provided.Attachments: 21:16 [facility] Payment Agreement zo 05/24 10:24 T-Sheet-- Draft Copy gb 17:38 ECG/EKG gb Chart Complete MTDD
== END 2016-05-23 22:55 | disposition left against medical advice (07) ==
LOC: M ED 20:09
DX: R56.9 Unspecified convulsions (principal); K50.90 Crohn's disease, unspecified, without complications; K58.9 Irritable bowel syndrome, unspecified; F60.3 Borderline personality disorder; M54.9 Dorsalgia, unspecified; G89.29 Other chronic pain; Z72.0 Tobacco use; Z79.891 Long term (current) use of opiate analgesic; Z79.899 Other long term (current) drug therapy; Z88.8 Allergy status to other drugs, medicaments and biological substances
CPT/HCPCS: 36415; 70450; 80048; 80076; 83605; 84443; 84703; 85027; 93005; 99284; G0480

== ENCOUNTER → 2017-04-23 | Outpatient (REF) | payer OTHER | LOC: M LAB REF 16:22 | DX: K50.914 Crohn's disease, unspecified, with abscess (principal); K59.1 Functional diarrhea; R12 Heartburn; E73.9 Lactose intolerance, unspecified ==

== ENCOUNTER → 2017-07-30 | Outpatient (REF) | payer OTHER ==
[2017-07-30 16:09] LABS: BASO % 0.1 % (0.0-1.0); EOS # 0.3 10^3/uL (0.0-0.50); EOS % 3.5 % (0.0-3.0); HEMATOCRIT 43.9 % (36.0-47.0); HEMOGLOBIN 15.4 g/dl (12.0-15.5); IMMATURE GRANULOCYTE % 0.4 % (0-3.0); LYMPH # 2.1 10^3/uL (1.5-4.5); LYMPH % 25.3 % (24.0-44.0); MEAN CORPUSCULAR HEMOGLOBIN 31.7 pg (27.0-33.0); MEAN CORPUSCULAR HGB CONC 35.1 g/dl (32.0-36.5); MEAN CORPUSCULAR VOLUME 90.3 fl (80.0-96.0); MONO # 0.6 10^3/uL (0.0-0.8); MONO % 6.8 % (0.0-5.0); NEUTROPHILS # 5.3 10^3/uL (1.8-7.7); NEUTROPHILS % 63.9 % (36.0-66.0); PLATELET COUNT, AUTOMATED 235 10^3/uL (150-450); RED BLOOD COUNT 4.86 10^6/uL (4.00-5.40); RED CELL DISTRIBUTION WIDTH 12.2 % (11.5-14.5); WHITE BLOOD COUNT 8.4 10^3/uL (4.0-10.0)
== END ==
LOC: M SFHCPLAZ 14:24
DX: K50.90 Crohn's disease, unspecified, without complications (principal)

== ENCOUNTER → 2017-09-30 | Outpatient (CLI) | payer OTHER ==
[2017-09-30 17:11] LABS: BASO % 0.2 % (0.0-1.0); EOS # 0.2 10^3/uL (0.0-0.50); EOS % 2.4 % (0.0-3.0); HEMATOCRIT 40.2 % (36.0-47.0); HEMOGLOBIN 13.8 g/dl (12.0-15.5); IMMATURE GRANULOCYTE % 0.3 % (0-3.0); LYMPH # 2.2 10^3/uL (1.5-4.5); LYMPH % 23.6 % (24.0-44.0); MEAN CORPUSCULAR HEMOGLOBIN 30.9 pg (27.0-33.0); MEAN CORPUSCULAR HGB CONC 34.3 g/dl (32.0-36.5); MEAN CORPUSCULAR VOLUME 89.9 fl (80.0-96.0); MONO # 0.6 10^3/uL (0.0-0.8); MONO % 6.5 % (0.0-5.0); NEUTROPHILS # 6.2 10^3/uL (1.8-7.7); PLATELET COUNT, AUTOMATED 175 10^3/uL (150-450); RED BLOOD COUNT 4.47 10^6/uL (4.00-5.40); RED CELL DISTRIBUTION WIDTH 12.7 % (11.5-14.5); WHITE BLOOD COUNT 9.3 10^3/uL (4.0-10.0)
[2017-09-30 20:35] LABS: POS COUNT POS FLAG
== END ==
LOC: M LAB 16:00
DX: K50.90 Crohn's disease, unspecified, without complications (principal); J45.909 Unspecified asthma, uncomplicated; F32.9 Major depressive disorder, single episode, unspecified; M54.5 Low back pain; M54.2 Cervicalgia; J06.9 Acute upper respiratory infection, unspecified
CPT/HCPCS: 85025

== ENCOUNTER → 2017-10-01 | Outpatient (REF) | payer OTHER | LOC: M SFHCPLAZ 11:33 | DX: R32 Unspecified urinary incontinence (principal) ==

== ENCOUNTER → 2017-10-26 | Outpatient (CLI) | payer OTHER | LOC: M WUC 18:41 | DX: M25.571 Pain in right ankle and joints of right foot (principal); R30.0 Dysuria | CPT/HCPCS: 87186 ==

== ENCOUNTER → 2017-10-27 | Outpatient (CLI) | payer OTHER | LOC: M WUC 15:02 | DX: M54.2 Cervicalgia (principal) | CPT/HCPCS: 72052 ==

== ENCOUNTER → 2018-10-26 | Outpatient (REF) ==
[~2018-10-26] MED LIST changes: -/DULO30CA; -/DULO30CA OR; -/QUET10TA OR; +ADDE10TA PO; +ADDE1TAB14 PO; -ADDE5TAB5 PO; +AMBI10TA PO; +APRI0.37 PO; +CYMB1CAP5; +CYMB1CAP5 OR; -IMUR50TA PO; +IMUR50TA10 PO; -LYRI100C10 PO; +OMEP40CA97 PO; +OXCA300S3 PO; +PREG100CA PO; +SERO1TAB OR
--- NOTE | 2018-10-26 15:02 | REP ---
Lumbar spine three views: Comparison is 2015. Vertebral body heights, interspacing alignment are normal. There are small osteophytes anteriorly at the L 03/04 disc space compatible with mild degenerative disc disease at this level. The disc spaces are otherwise unremarkable. The pedicles, facets and sacroiliac articulations are unremarkable. There are surgical clips in the abdomen on the right, unchanged. Impression: Mild L3-4 degenerative disc disease. Otherwise, negative lumbar spine. Electronically Signed by Everett Kyle MD 10/26/2018 02:54 P
== END ==
LOC: M SMT 13:36
PROVIDERS: ATTEND Internal Medicine
DX: Z00.00 Encounter for general adult medical examination without abnormal findings (principal)

== ENCOUNTER → 2018-11-05 | Outpatient (REF) | payer OTHER ==
[~2018-11-05] MED LIST changes: +OMEP40CA2 PO; -OMEP40CA97 PO
[2018-11-14 16:05] LABS: CALPROTECTIN STOOL 53 ug/g (0-120); FATS NEUTRAL Normal (.); FATS TOTAL Normal (.)
== END ==
LOC: M LAB REF 17:12
PROVIDERS: ATTEND Internal Medicine Gastroenterology
DX: R10.84 Generalized abdominal pain (principal); K50.914 Crohn's disease, unspecified, with abscess; E73.9 Lactose intolerance, unspecified; M13.0 Polyarthritis, unspecified; E55.9 Vitamin D deficiency, unspecified

== ENCOUNTER → 2018-12-03 | Outpatient (REF) | payer OTHER ==
[2018-12-03 12:47] LABS: ALBUMIN 3.8 GM/DL (3.2-5.2); ALT/SGPT 19 U/L (12-78); BILIRUBIN,TOTAL 0.4 MG/DL (0.2-1.0); BLOOD UREA NITROGEN 6 MG/DL (7-18); CALCIUM LEVEL 8.9 MG/DL (8.5-10.1); CARBON DIOXIDE LEVEL 26 MEQ/L (21-32); CHLORIDE LEVEL 104 MEQ/L (98-107); CHOLESTEROL LEVEL 165 MG/DL (<200); CREATININE FOR GFR 0.76 MG/DL (0.55-1.30); GLOMERULAR FILTRATION RATE > 60.0 (>60); GLUCOSE, FASTING 82 MG/DL (70-100); HDL CHOLESTEROL 55 MG/DL (>40); LDL CHOLESTEROL 97 MG/DL (<100); NON-HDL-C 110 MG/DL; SODIUM LEVEL 139 MEQ/L (136-145); TOTAL PROTEIN 6.9 GM/DL (6.4-8.2); TRIGLYCERIDES LEVEL 66 MG/DL (<150)
[2018-12-03 12:56] LABS: TOTAL 25(OH) VITAMIN D 72.8 NG/ML (30.0-100.0)
== END ==
LOC: M SFHCPLAZ 10:39
PROVIDERS: ATTEND Nurse Practitioner Family
DX: K50.90 Crohn's disease, unspecified, without complications (principal); F32.9 Major depressive disorder, single episode, unspecified

== ENCOUNTER → 2018-12-23 | Outpatient (CLI) | payer OTHER ==
[~2018-12-23] MED LIST changes: +E-Z-PAQUE 96% w/w SUSP 176GM BTL As Ordered ONE
--- NOTE | 2018-12-23 16:46 | REP ---
Small bowel follow-through The procedure was performed under the direct supervision of Dr. Murphy. The images were reviewed with Dr. Murphy. The fork lift technician film shows no organomegaly or pathological masses. The intestinal gas pattern is nonspecific. There is an IUD in place. There are bowel sutures noted in the right abdomen. There is a surgical clips noted in the right abdomen. Liquid barium was administered and serial images were obtained. At the 60-minute film the patient no longer wish to continue the exam and left the department. Ballottement images were not obtained. The visualized portion of the small bowel appears normal in course and caliber. Impression: Incomplete exam as the patient did not wish to continue. The visualized portion of the small bowel appears normal in course and caliber. Reviewed by JUAN Ellison 12/23/2018 04:15 P Electronically Signed by Tommy Murphy MD 12/23/2018 04:37 P
== END ==
LOC: M RAD 09:06
PROVIDERS: ATTEND Internal Medicine Gastroenterology
DX: E55.9 Vitamin D deficiency, unspecified (principal); K50.914 Crohn's disease, unspecified, with abscess; K59.1 Functional diarrhea; R11.2 Nausea with vomiting, unspecified

== ENCOUNTER → 2019-02-14 | Outpatient (REF) | payer OTHER ==
[~2019-02-14] MED LIST changes: -E-Z-PAQUE 96% w/w SUSP 176GM BTL As Ordered ONE; -OMEP40CA2 PO; +OMEP40CA97 PO
[2019-02-14 17:44] LABS: HEMOGLOBIN 13.8 g/dl (12.0-15.5); MEAN CORPUSCULAR HEMOGLOBIN 31.2 pg (27.0-33.0); MEAN CORPUSCULAR HGB CONC 32.9 g/dl (32.0-36.5); PLATELET COUNT, AUTOMATED 202 10^3/uL (150-450); RED BLOOD COUNT 4.42 10^6/uL (4.00-5.40); WHITE BLOOD COUNT 11.7 10^3/uL (4.0-10.0)
[2019-02-14 18:11] LABS: C REACTIVE PROTEIN QUANTITATIV 0.66 MG/DL (0.00-0.30); RHEUMATOID FACTOR QUANT < 10.0 IU/ML (<15.0)
[2019-02-14 18:14] LABS: HEMOGLOBIN A1c 5.1 %
[2019-02-14 18:20] LABS: ERYTHROCYTE SEDIMENTATION RATE 4 mm/hr (0-20)
[2019-02-14 18:22] LABS: VITAMIN B12 LEVEL 524 PG/ML (247-911)
== END ==
LOC: M SFHCPLAZ 15:15
PROVIDERS: ATTEND Physician Assistant Medical
DX: M25.60 Stiffness of unspecified joint, not elsewhere classified (principal); R20.2 Paresthesia of skin

== ENCOUNTER → 2019-08-17 | Outpatient (CLI) | payer OTHER | LOC: M PLALAB 15:06 | PROVIDERS: ATTEND Internal Medicine | DX: M25.50 Pain in unspecified joint (principal) ==

== ENCOUNTER → 2019-08-18 | Outpatient (CLI) | payer OTHER ==
--- NOTE | 2019-08-18 17:42 | REPPI ---
Clinical: Polyarthralgia Technique: AP, lateral, bilateral oblique views of the right and left hand . Findings: The osseous structures and joint spaces are intact and normal. No overt arthritic changes are appreciated. There is no evidence for acute fracture or dislocation. Surrounding soft tissues are unremarkable. No subcutaneous emphysema or radiodense foreign body. Impression: Normal age appropriate bilateral hand radiograph series. No overt osteoarthritic or inflammatory arthritic changes noted. Electronically Signed by Sergio Prince MD 08/18/2019 05:33 P
--- NOTE | 2019-08-18 17:50 | REPPI ---
Clinical: Polyarthralgia. Technique: AP, AP angled, and bilateral oblique views of the sacroiliac joints. Findings: The bilateral sacroiliac joints are symmetric and age appropriate. No overt degenerative changes are appreciated. No evidence for acute fracture or subluxation. Surrounding osseous structures, joint spaces and soft tissues are within normal limits. Impression: Age-appropriate examination. Electronically Signed by Sergio Prince MD 08/18/2019 05:42 P
--- NOTE | 2019-08-18 17:57 | REPPI ---
Clinical: Polyarthralgia Technique: AP, lateral, bilateral oblique views right and left foot . Findings: Generalized age-related changes are noted bilaterally including mildly increased sclerosis at the right and left first metatarsophalangeal joints. Small bilateral calcaneal heel spurs are also noted. Remainder examination is normal. No further overt arthritic degenerative changes are appreciated. No acute fracture or dislocation. Impression: Essentially symmetric generalized age-related changes. Electronically Signed by Sergio Prince MD 08/18/2019 05:49 P
== END ==
LOC: M PLAIMG 09:56
PROVIDERS: ATTEND Internal Medicine
DX: M25.50 Pain in unspecified joint (principal)

== ENCOUNTER → 2020-02-14 | Outpatient (REF) | payer OTHER | LOC: M LAB REF 15:45 | PROVIDERS: ATTEND Physician Assistant | DX: R30.0 Dysuria (principal) ==

== ENCOUNTER → 2020-03-15 | Outpatient (CLI) | payer OTHER ==
--- NOTE | 2020-03-20 02:04 | ECWPNPC ---
PATIENT NAME: KALE CALLEJAS : 1980 GENDER: FEMALE VISIT DATE: 03/15/2020 DISCHARGE DATE: 03/15/20 1414 VISIT LOCKED DATE TIME: PHYSICIAN: ANASTASIIA FUNG PHYSICIAN PAGER NO: ACTIVE RESOURCE: ANASTASIIA FUNG REASON FOR APPOINTMENT 1. ABDOMINAL PAIN/BACK PAIN HISTORY OF PRESENT ILLNESS GENERAL: HERE PER REFERRAL OF GASTROENTEROLOGY FOR CHRONIC ABDOMINAL PAIN. HISTORY OF SMALL BOWEL RESECTION IN 2006 AND HAS HAD CHRONIC ABDOMINAL PAIN SINCE. ALSO HAS A DIAGNOSIS OF CROHN'S DISEASE. REPORTING CONSTANT SHARP PAIN IN HER ABDOMEN AND HYPERSENSITIVITY ON MIDLINE INCISION. WAS ON PERCOCET PRESCRIBED BY GASTROENTEROLOGY FOR SEVERAL YEARS DUE TO CHRONIC ABDOMINAL PAIN BUT SINCE GASTROENTEROLOGY TOLD HER THAT THEY CAN NO LONGER PRESCRIBE NARCOTIC PAIN MEDICATIONS. THE LAST TIME SHE HAD PERCOCET 5/325 WAS IN JULY. STATES THAT AT ONE POINT AND FOR MANY YEARS SHE WAS TAKING 6 TABLETS DAILY. HAD A LONG CONVERSATION ABOUT THE POTENTIAL SIDE EFFECTS OF NARCOTIC EXPOSURE ESPECIALLY AT HIGH DOSES ON A DAILY BASIS. INFORMED HER THAT WE ARE NOT RECOMMENDING DAILY NARCOTICS FOR CHRONIC PAIN DUE TO MANY REASONS THAT I'VE EXPLAINED TO HER TODAY. ALSO PATIENT HAS A HISTORY OF ADDICTION DISORDER AND EXPOSURE TO NARCOTICS COULD LEAD TO A RECURRENCE OF HER ADDICTION PROBLEM. REPORTING NO CHANGES IN HER BOWEL OR BLADDER FUNCTION. DENIES RECENT WEIGHT LOSS OR ILLNESS. REPORTS HAVING HELP IN THE HOME. REPORTS BEING ON DISABILITY DUE TO PSYCHIATRIC AND PAIN ISSUES. - - -. FALL RISK SCREENING: SCREENING :TWO OR MORE FALLS WITHOUT INJURY IN THE PAST YEAR PAIN SCREENING: PATIENT HAS A COMPLAINT OF ACUTE OR CHRONIC PAIN :YES LOCATION OF PAIN:ABDOMEN INTENSITY OF PAIN (SCALE OF 1 TO 10):6 WHAT DOES YOUR PAIN FEEL LIKE:CONTINOUS, STABBING, TENDER PAIN IS INCREASED BY:OTHERS DOESNT MATTER NURSING NOTE: - - -. PAIN CENTER INTAKE QUESTIONS: DO YOU HAVE A HISTORY OF MRSA? :NO DO YOU TAKE A BLOOD THINNERS? :NO DO YOU HAVE ANY BLEEDING DISORDERS? :NO ANY NEW NUMBNESS OR WEAKNESS IN YOUR LEGS OR ARMS? :NO ANY PACEMAKER,DEFIBRILLATOR, OR DORSAL COLUMN STIMULATOR? :NO DO YOU HAVE ANY RASHES OR OPEN SORES? :NO ARE YOU ALLERGIC TO IV DYE? :NO ARE YOU DIABETIC? :NO ANY NEW PROBLEMS WITH YOUR MEDICATIONS? :NO HAVE YOU RECEIVED A VACCINE IN THE PAST 30 DAYS? :NO DO YOU PLAN TO RECEIVE A VACCINE IN THE NEXT 21 DAYS? :NO DO YOU NEED ANY PRESCRIPTION? :NO DO YOU TAKE ANY IMMUNOSUPPRESSIVE MEDICATIONS? :NO CURRENT MEDICATIONS TAKING ZOFRAN 4 MG TABLET 1 TABLET ORALLY ONCE A DAY, NOTES: PRN TAKING CARAFATE 1 GM TABLET 1 TABLET ON AN EMPTY STOMACH ORALLY TWICE A DAY TAKING OMEPRAZOLE 40 MG CAPSULE DELAYED RELEASE 1 CAPSULE ORALLY ONCE A DAY TAKING ADDERALL 20 MG TABLET 1 TABLET ORALLY BID, NOTES: DR. GARCIA TAKING XANAX 1 MG TABLET 1 TABLET ORALLY FOUR TIMES DAILY TAKING AMBIEN 10 MG TABLET 1 TABLET AT BEDTIME NEEDED ORALLY ONCE A DAY TAKING GARLIC 1000 MG CAPSULE ORALLY , NOTES: NOT ALWAYS TAKING VITAMIN B 12 100 MCG LOZENGE 1000MCG ORALLY DAILY TAKING MULTIVITAMIN GUMMIES WOMENS - TABLET CHEWABLE ORALLY TAKING BACK SUPPORT - MISCELLANEOUS BACK BRACE 60-90 MINS DAILY, NOTES: DR. RAMOS TAKING HYOSYNE 0.125 MG/ML SOLUTION 1 ML NEEDED ORALLY PILL FORM EVERY 4 HRS TAKING FLUTICASONE-SALMETEROL TAKING TIZANIDINE HCL 4 MG TABLET 2 TABLET NEEDED ORALLY THREE TIMES A DAY TAKING LATUDA 20 MG TABLET 1 TABLET ORALLY ONCE A DAY, NOTES: TAKING VENTOLIN HFA 108 (90 BASE) MCG/ACT AEROSOL SOLUTION 2 PUFFS NEEDED INHALATION EVERY 4 HRS, NOTES: DUPLICATE TAKING LYRICA 150 MG CAPSULE 1 CAPSULE ORALLY THREE TIMES A DAY MDD 3 NOT-TAKING PERCOCET 5-325 MG TABLET 1 TABLET NEEDED ORALLY EVERY [address]D [address] LIRIANO, NOTES: NOT SINCE JULY NOT-TAKING AIRDUO RESPICLICK 113 113-14 MCG/ACT AEROSOL POWDER BREATH ACTIVATED 1 PUFF INHALATION TWICE A DAY MEDICATION LIST REVIEWED AND RECONCILED WITH THE PATIENT PAST MEDICAL HISTORY CROHN'S, DX 2006; FOLLOWS WITH DR. JUSTUS ROBERTS ASTHMA, 1990 OBESITY FIBROMYALGIA - DR ORTIZ, 2010, HAS BEEN ON LYRICA 150 MG TID, WORKED WELL. BIPOLAR D/O - LITTELL ANXIETY D/O - LITTELL PRIOR H/O COCAINE DEPENDENCE INSOMNIA BORDERLINE PERSONALITY D/O DEPRESSION HEP C, DX 11/22, STATES RECEIVED SHOTS. IVDU GENE 10/24 FEV 1 3.26 COLONOSCOPY 09/24 DR LIRIANO, NL. COLITIS PTSD COLONOSCOPY AND UPPER ENDOSCOPY: 08/2017 ALLERGIES BENTYL: CONFUSION - SIDE EFFECTS REMICADE: MUSCLE SPACICITY - SIDE EFFECTS SURGICAL HISTORY TUBAL LIGATION 2004 HEMARRHOIDECTOMY 2006 SMALL BOWEL RESECTION 2006 HEMARRHOIDECTOMY 2010 FAMILY HISTORY FATHER: ALIVE MOTHER: ALIVE SIBLINGS: ALIVE 2 SISTER(S) - HEALTHY. 2 SON(S) - HEALTHY. SOCIAL HISTORY GENERAL: TOBACCO USE ARE YOU A:CURRENT SMOKER ARE YOU INTERESTED IN QUITTING?THINKING ABOUT QUITTING COUNSELED THE PATIENT ON SMOKING CESSATION, EDUCATION [id number]/03/2020 HOW MANY CIGARETTES A DAY DO YOU SMOKE?6-10 HOW SOON AFTER YOU WAKE UP DO YOU SMOKE YOUR FIRST CIGARETTE?6-30 MIN HOW OFTEN DO YOU SMOKE CIGARETTES?EVERY DAY PATIENT COUNSELED ON THE DANGERS OF TOBACCO USE AND URGED TO QUIT:12/03/2018 LATEX QUESTIONNAIRE LATEX ALLERGY : HAVE YOU EVER DEVELOPED ANY TYPE OF REACTION AFTER HANDLING LATEX PRODUCTS SUCH RUBBER GLOVES, CONDOMS, DIAPHRAGMS, BALLOONS, SOCKS, OR UNDERWEAR?NO LATEX ALLERGY : HAVE YOU EVER DEVELOPED ANY TYPE OF REACTION DURING OR AFTER DENTAL APPOINTMENT, VAGINAL/RECTAL EXAMINATION, SURGICAL PROCEDURE, OR ANY OTHER EXPOSURE?NO LATEX RISK : HAVE YOU EVER HAD ANY DIFFICULTY BREATHING OR HIVES AFTER EATING OR HANDLING ANY FRUITS, OR VEGETABLES; SUCH KIWI, BANANAS, STONE FRUITS, OR CHESTNUTSNO LATEX RISK : DO YOU HAVE A PREVIOUS PERSONAL HISTORY OF MORE THAN NINE SURGERIES, SPINA BIFIDA, OR REPEATED CATHERIZATIONS? NO LATEX RISK : ARE YOU FREQUENTLY EXPOSED TO LATEX PRODUCTS IN YOUR OCCUPATION?NO DATE ASKED : 09/08/2019 BMI CARE GOAL FOLLOW-UP ABOVE NORMAL BMI FOLLOW-UPDIETARY NEEDS EDUCATION ALCOHOL SCREENING DID YOU HAVE A DRINK CONTAINING ALCOHOL IN THE PAST YEAR?YES HOW OFTEN DID YOU HAVE SIX OR MORE DRINKS ON ONE OCCASION IN THE PAST YEAR?NEVER (0 POINTS) HOW MANY DRINKS DID YOU HAVE ON A TYPICAL DAY WHEN YOU WERE DRINKING IN THE PAST YEAR?1 OR 2 (0 POINTS) HOW OFTEN DID YOU HAVE A DRINK CONTAINING ALCOHOL IN THE PAST YEAR?MONTHLY OR LESS (1 POINT) POINTS1 INTERPRETATIONNEGATIVE RECREATIONAL DRUG USE DRUG USE? NO , PATIENT DENIES ABUSE OR MISSUSED OF ANY MEDICATION . , PATIENT DENIES USE OF ANY ILLEGAL SUBSTANCE INCLUDING MARIJUANA OR COCAINE .. CAFFEINE CAFFEINE USE? YES , HOW OFTEN AND HOW MUCH? 2-3 CUPS. SEXUAL HX HAD SEX IN THE LAST 12 MONTHS (VAGINAL, ORAL, OR ANAL)?YES WITHMEN ONLY USE PROTECTION?NO HAVE YOU EVER HAD AN STD?NO HIV / HEP-C SCREENING HIV TEST OFFERED TO PATIENT:YES DATE OFFERED:07/24/2016 TEST ACCEPTED:NO HEP-C TEST OFFERED TO PATIENT:NO REASON:PATIENT DECLINED LANGUAGE LANGUAGES SPOKEN:DANISH EDUCATION LEVEL OF EDUCATION:FINISHED HIGH SCHOOL LEARNING BARRIERS / SPECIAL NEEDS CHANGE FROM LAST VISIT?NO BARRIERS TO LEARNING?NO HEARING IMPAIRED?NO VISION IMPAIRED?NO COGNITIVELY IMPAIRED?NO READINESS TO LEARN?YES LEARNING PREFERENCES?NO LEARNING CAPABILITIES PRESENT?YES EMOTIONAL BARRIERS?NO SPECIAL DEVICES?YES :CANE, BRACE SCHEDULER NEEDED?NO DOMESTIC VIOLENCE DO YOU FEEL SAFE IN YOUR ENVIRONMENT?YES OCCUPATION: DISABLED. EXERCISE: NO REGULAR EXERCISE. PAIN CLINIC PFS, CLERGY, PUBLIC HEALTH REFERRALS PFS REFERRAL NEEDED? NO , CLERGY REFERRAL NEEDED? NO , PUBLIC HEALTH REFERRAL NEEDED? NO , WAS THE PROVIDER NOTIFIED OF ANY PERTINENT INFO? YES. ADVANCE DIRECTIVE HEALTH CARE PROXY? NO , POWER OF WORKERS COMPENSATION PARALEGAL? NO. 2009, CARE HOME X 3 M, SENT TO REHAB, WAS D/C FROM REHAB, ATTEMPTED SALE, WAS ON PROBATION FOR 5 YEARS, 11/22, ARRESTED FOR USING CRACK COCAINE, HAD BEEN USING "CPL TIMES A MONTH", CARE HOME FOR 5 MONTHS. RELEASED 04/25, NOW OFF PROBATION. HOSPITALIZATION/MAJOR DIAGNOSTIC PROCEDURE [facility]- STAY REFUSED [facility], HIT HEAD 2WKS PRIOR 06/2016 REVIEW OF SYSTEMS CONSTITUTIONAL: ANY RECENT FEVER NO . CHILLS NO . WEIGHT CHANGE OF UNKNOWN REASONS NO . GASTROENTEROLOGY: NEW UNEXPLAINABLE CHANGES IN BOWEL CONTROL NO . CONSTIPATION NO . GENITOURINARY: ANY NEW CHANGE IN BLADDER CONTROL? NO . NEUROLOGY: NEW ONSET DIZZINESS OR NEUROLOGICAL CHANGES NOT MENTIONED NO . NEW NUMBNESS OR PAIN PATTERNS NOT MENTIONED AND PERTINENT TO TODAY'S VISIT NO . CARDIOLOGY: NEW CHEST PRESSURE NO . NEW CHEST PAIN NO . RESPIRATORY: UNEXPLAINABLE COUGH NO . NEW SHORTNESS OF BREATH NO . VITAL SIGNS WT 218.4 LBS, HT 67 IN, BMI 34.20 INDEX, BP 139/94 MM HG, HR 121 /MIN, RR 20 /MIN, TEMP 98.1 F, OXYGEN SAT % 98%, NA INITIALS SC 13:11. EXAMINATION GENERAL EXAMINATION: GENERALNO ACUTE DISTRESS, WELL NOURISHED AND HYDRATED. PSYCHAPPROPRIATE MOOD AND AFFECT . FACE:UNREMARKABLE. NECK:NO LYMPHADENOPATHY, SUPPLE. LUNGS:CLEAR TO AUSCULTATION BILATERALLY, NO WHEEZES, RHONCHI, RALES. HEART:NO MURMURS, REGULAR RATE AND RHYTHM. ABDOMEN: WELL HEALDED MID LINE SURGICAL INCISION.MARKED HYPERSENSITIVITY TO LIGHT TOUCH OVER INCISION.. MUSCULOSKELETAL: MUSCLE STRENGTH TESTING 5/5 BILATERAL UPPER AND LOWER EXTREMITIES. ASSESSMENTS ABDOMINAL PAIN OF MULTIPLE SITES - R10.9 (PRIMARY) TREATMENT ABDOMINAL PAIN OF MULTIPLE SITES NOTES: ADVISED TO USE TOPICAL LIDOCAINE PRODUCTS AVAILABLE [id number] TO INCISIONAL AREA 2 TIMES DAILY NEEDED. I WOULD NOT RECOMMEND NARCOTIC PAIN MEDICATIONS. SHE IS NOT INTERESTED IN TRYING MULTIPLE MEDICATIONS/NONNARCOTIC SHE HAS TRIED SEVERAL IN THE PAST WITHOUT RELIEF. SHE IS NOT INTERESTED IN ABDOMINAL INJECTIONS AND QUITE FRANKLY THIS AREA IS SO HYPERSENSITIVE TO LIGHT TOUCH I DON'T THINK THAT SHE WOULD BE A GOOD CANDIDATE FOR SCAR NEUROMA INJECTIONS IN HER ABDOMEN. PROCEDURE CODES FA211 ESTABILISHED PATIENT [facility] CHARGE DISPOSITION & COMMUNICATION FOLLOW UP PT WILL CALL FOR F/U IF NECESSARY (REASON: ABDOMINAL PAIN) ELECTRONICALLY SIGNED BY TR PRECIADO ON 03/19/2020 AT 08:53 AM EST DISCLAIMER : THIS IS A VISIT SUMMARY EXTRACTED FROM THE [employer] CHART. IT IS NOT A COPY OF THE [employer] PROGRESS NOTE. SABRINA
== END ==
LOC: M PAIN 13:00
PROVIDERS: ATTEND Nurse Practitioner Family
DX: R10.9 Unspecified abdominal pain (principal); K50.90 Crohn's disease, unspecified, without complications; J45.909 Unspecified asthma, uncomplicated; E66.9 Obesity, unspecified; M79.7 Fibromyalgia; F31.9 Bipolar disorder, unspecified; F41.9 Anxiety disorder, unspecified; G47.00 Insomnia, unspecified; F60.3 Borderline personality disorder; F17.210 Nicotine dependence, cigarettes, uncomplicated; Z79.899 Other long term (current) drug therapy; Z88.8 Allergy status to other drugs, medicaments and biological substances; Z68.34 Body mass index [BMI] 34.0-34.9, adult

== ENCOUNTER → 2020-05-22 | Outpatient (REF) | payer OTHER ==
[2020-05-22 17:30] LABS: BASO % 0.2 % (0.0-1.0); EOS # 0.2 10^3/uL (0.0-0.5); EOS % 1.2 % (0.0-3.0); HEMATOCRIT 48.5 % (36.0-47.0); HEMOGLOBIN 16.4 g/dl (12.0-15.5); LYMPH # 2.4 10^3/uL (1.5-5.0); LYMPH % 18.6 % (24.0-44.0); MEAN CORPUSCULAR HEMOGLOBIN 30.5 pg (27.0-33.0); MEAN CORPUSCULAR HGB CONC 33.8 g/dl (32.0-36.5); MEAN CORPUSCULAR VOLUME 90.3 fl (80.0-96.0); MONO % 7.6 % (0.0-5.0); NEUTROPHILS # 9.3 10^3/uL (1.5-8.5); NEUTROPHILS % 72.2 % (36.0-66.0); PLATELET COUNT, AUTOMATED 248 10^3/uL (150-450); RED BLOOD COUNT 5.37 10^6/uL (4.00-5.40)
[2020-05-22 17:33] LABS: WHITE BLOOD COUNT 12.8 10^3/uL (4.0-10.0)
[2020-05-22 17:55] LABS: ALBUMIN 3.9 GM/DL (3.2-5.2); ALT/SGPT 23 U/L (12-78); BILIRUBIN,TOTAL 0.2 MG/DL (0.2-1.0); BLOOD UREA NITROGEN 7 MG/DL (7-18); CALCIUM LEVEL 9.1 MG/DL (8.5-10.1); CARBON DIOXIDE LEVEL 28 MEQ/L (21-32); CHLORIDE LEVEL 105 MEQ/L (98-107); CHOLESTEROL LEVEL 181 MG/DL (<200); CHOLESTEROL RISK RATIO 3.175 (<5); CREATININE FOR GFR 1.02 MG/DL (0.55-1.30); FREE T4 0.98 NG/DL (0.76-1.46); GLOMERULAR FILTRATION RATE > 60.0 (>60); GLUCOSE, FASTING 99 MG/DL (70-100); HDL CHOLESTEROL 57 MG/DL (>40); LDL CHOLESTEROL 107 MG/DL (<100); NON-HDL-C 124 MG/DL; POTASSIUM SERUM 4.8 MEQ/L (3.5-5.1); SODIUM LEVEL 140 MEQ/L (136-145); THYROID STIMULATING HORMONE 0.638 uIU/ML (0.358-3.740); TOTAL PROTEIN 7.4 GM/DL (6.4-8.2); TRIGLYCERIDES LEVEL 83 MG/DL (<150)
[2020-05-22 17:57] LABS: PTH INTACT 69.2 PG/ML (18.5-88.0); TOTAL 25(OH) VITAMIN D 28.5 NG/ML (30.0-100.0)
[2020-05-22 18:01] LABS: HEMOGLOBIN A1c 5.2 %
== END ==
LOC: M SFHCPLAZ 14:11
PROVIDERS: ATTEND Physician Assistant Medical
DX: J45.909 Unspecified asthma, uncomplicated (principal); Z13.220 Encounter for screening for lipoid disorders; E55.9 Vitamin D deficiency, unspecified; E66.09 Other obesity due to excess calories; F31.9 Bipolar disorder, unspecified

== ENCOUNTER → 2020-09-17 | Outpatient (CLI) | payer OTHER ==
--- NOTE | 2020-09-17 14:59 | REPMRS ---
Patient History The patient states she has not had a clinical breast exam in over a year. Baseline No known family history of cancer. Patient states no breast complaints. Patient has signed the MRS history sheet. Digital Woman Screen Mammo: September 17, 2020 - Exam #: [id number] Bilateral CC and MLO view(s) were taken. Technologist: Randi Obrien, Technologist FINDINGS: There are scattered fibroglandular densities. Screening. Digital screening (2D) mammography was performed bilaterally. Additionally, breast tomosynthesis (3D) mammography was perfomed bilaterally in the CC and MLO projections. Today's examination is the initial screening examination. By history, the patient has no complaints of a palpable breast abnormality or other significant breast complaints. The breasts are symmetric in size and shape. There are no masses. There is no internal architectural distortion. There are no suspicious microcalcific clusters. Skin thickening or nipple retraction is not present. IMPRESSION: BI-RADS Category 2- Benign Findings. There is no evidence of malignant alteration of the breasts. Followup examination recommended in one year. The Volpara volumetric breast density category is B, there are scattered areas of fibroglandular density. This mammogram was read with the assistance of AFFiRiS,an FDA approved computer aided detection system for mammography. The lifetime Tyrer-Cuzick score is 9.4 % Negative x-ray reports should not delay surgical consultation if a dominant or clinically suspicious mass is present. Not all breast cancers can be identified by mammography. Therefore, we recommend that you continue to perform regular breast self-examination and physical examination and then promptly contact your physician of any concerns or changes. Adenosis and dense breasts may obscure an underlying neoplasm. Assessment: BI-RADS/ACR category 2 mammogram. Benign Findings. Recommendation Routine screening mammogram of both breasts in 1 year. Electronically Signed By: Richard Fang DO 09/17/20 [id number]
--- NOTE | 2020-09-17 17:35 | DEXAMM ---
INDICATION: Z13.820 SCREENING FOR OSTEOPOROSIS. COMPARISON: None. TECHNIQUE: Bone density was measured using dual-energy x-ray absorptiometry (DEXA). FINDINGS: AP SPINE L1-L4 BMD 1.077 g/cm2 Young Adult T-Score -0.9 Age Matched Z-Score -0.9. LT FEMUR, TOTAL BMD 1.051 g/cm2 Young Adult T-Score 0.3 Age Matched Z-Score 0.6. LT NECK BMD 1.079 g/cm2 Young Adult T-Score 0.3 Age Matched Z-Score 0.7. RT FEMUR, TOTAL BMD 1.037 g/cm2 Young Adult T-Score 0.2 Age Matched Z-Score 0.4. RT NECK BMD 1.030 g/cm2 Young Adult T-Score -0.1 Age Matched Z-Score 0.4. IMPRESSION: There is normal bone density of the spine. There is normal bone density of the left hip. There is normal bone density of the right hip. FOLLOW-UP: Recommendation for the next bone density exam: 5 years. <Electronically signed by Everett Smith > 09/17/20 0041
== END ==
LOC: M WHC 13:33
PROVIDERS: ATTEND Advanced Practice Midwife
DX: Z12.31 Encounter for screening mammogram for malignant neoplasm of breast (principal); Z13.820 Encounter for screening for osteoporosis

== ENCOUNTER → 2021-06-13 | Outpatient (CLI) | payer OTHER ==
[~2021-06-13] MED LIST changes: +OMEP40CA4 PO; -OMEP40CA97 PO
== END ==
LOC: M RAD 13:53
PROVIDERS: ATTEND Physician Assistant Medical
DX: S06.0X0A Concussion without loss of consciousness, initial encounter (principal); W18.30XA Fall on same level, unspecified, initial encounter; Y92.009 Unspecified place in unspecified non-institutional (private) residence as the place of occurrence of the external cause

== ENCOUNTER → 2021-12-09 | Outpatient (CLI) | payer OTHER ==
[2021-12-09 13:38] LABS: BASO % 0.4 % (0.0-1.0); EOS # 0.3 10^3/uL (0.0-0.5); EOS % 3.8 % (0.0-3.0); HEMATOCRIT 42.9 % (36.0-47.0); HEMOGLOBIN 14.3 g/dl (12.0-15.5); LYMPH # 1.7 10^3/uL (1.5-5.0); LYMPH % 21.4 % (24.0-44.0); MEAN CORPUSCULAR HEMOGLOBIN 29.8 pg (27.0-33.0); MEAN CORPUSCULAR HGB CONC 33.3 g/dl (32.0-36.5); MEAN CORPUSCULAR VOLUME 89.4 fl (80.0-96.0); MONO # 0.5 10^3/uL (0.0-0.8); MONO % 6.8 % (2.0-8.0); NEUTROPHILS # 5.3 10^3/uL (1.5-8.5); NEUTROPHILS % 67.3 % (36.0-66.0); PLATELET COUNT, AUTOMATED 219 10^3/uL (150-450); WHITE BLOOD COUNT 7.9 10^3/uL (4.0-10.0)
[2021-12-09 16:04] LABS: ALBUMIN 3.3 GM/DL (3.2-5.2); ALT/SGPT 31 U/L (12-78); BILIRUBIN,TOTAL 0.4 MG/DL (0.2-1.0); BLOOD UREA NITROGEN 6 MG/DL (7-18); CALCIUM LEVEL 8.8 MG/DL (8.5-10.1); CARBON DIOXIDE LEVEL 29 MEQ/L (21-32); CHLORIDE LEVEL 103 MEQ/L (98-107); CHOLESTEROL LEVEL 154 MG/DL (<200); CHOLESTEROL RISK RATIO 3.208 (<5); CREATININE FOR GFR 0.66 MG/DL (0.55-1.30); FREE T4 1.11 NG/DL (0.76-1.46); GLOMERULAR FILTRATION RATE > 60.0 (>58); GLUCOSE, FASTING 91 MG/DL (70-100); HDL CHOLESTEROL 48 MG/DL (>40); LDL CHOLESTEROL 82 MG/DL (<100); NON-HDL-C 106 MG/DL; PTH INTACT 67.2 PG/ML (18.5-88.0); SODIUM LEVEL 137 MEQ/L (136-145); THYROID STIMULATING HORMONE 0.319 uIU/ML (0.358-3.740); TOTAL 25(OH) VITAMIN D 31.8 NG/ML (30.0-100.0); TRIGLYCERIDES LEVEL 118 MG/DL (<150)
[2021-12-09 21:22] LABS: HEMOGLOBIN A1c 5.1 %
[2021-12-10 15:08] LABS: HEPATITIS C QUANTITATION HCV Not Detected IU/mL (.)
== END ==
LOC: M PLALAB 09:31
PROVIDERS: ATTEND Physician Assistant Medical
DX: E55.9 Vitamin D deficiency, unspecified (principal); Z86.19 Personal history of other infectious and parasitic diseases; J45.909 Unspecified asthma, uncomplicated; Z13.220 Encounter for screening for lipoid disorders; E66.09 Other obesity due to excess calories; S06.0X0A Concussion without loss of consciousness, initial encounter; X58.XXXA Exposure to other specified factors, initial encounter; Y93.9 Activity, unspecified; Y99.9 Unspecified external cause status; Y92.9 Unspecified place or not applicable

== ENCOUNTER → 2022-08-04 | Outpatient (CLI) | payer OTHER | LOC: M PLAIMG 13:19 | PROVIDERS: ATTEND Physician Assistant Medical | DX: M51.36 Other intervertebral disc degeneration, lumbar region (principal) ==

== ENCOUNTER → 2022-12-03 | Outpatient (CLI) | payer OTHER ==
[2022-12-03 16:10] LABS: BASO # 0.1 10^3/uL (0.0-0.2); BASO % 0.6 % (0.0-1.0); EOS # 0.6 10^3/uL (0.0-0.5); EOS % 6.6 % (0.0-3.0); HEMATOCRIT 42.7 % (36.0-47.0); HEMOGLOBIN 13.9 g/dl (12.0-15.5); LYMPH # 2.1 10^3/uL (1.5-5.0); LYMPH % 24.8 % (24.0-44.0); MEAN CORPUSCULAR HEMOGLOBIN 30.1 pg (27.0-33.0); MEAN CORPUSCULAR HGB CONC 32.6 g/dl (32.0-36.5); MEAN CORPUSCULAR VOLUME 92.4 fl (80.0-96.0); MONO # 0.7 10^3/uL (0.0-0.8); MONO % 7.6 % (2.0-8.0); NEUTROPHILS # 5.1 10^3/uL (1.5-8.5); NEUTROPHILS % 60.2 % (36.0-66.0); PLATELET COUNT, AUTOMATED 287 10^3/uL (150-450); RED BLOOD COUNT 4.62 10^6/uL (4.00-5.40); WHITE BLOOD COUNT 8.5 10^3/uL (4.0-10.0)
[2022-12-03 16:41] LABS: ALBUMIN 3.9 G/DL (3.2-5.2); ALKALINE PHOSPHATASE 67 U/L (46-116); ALT/SGPT 14 U/L (7.0-40); AST/SGOT 11 U/L (<34); BILIRUBIN,TOTAL 0.3 MG/DL (0.3-1.2); BLOOD UREA NITROGEN 6 MG/DL (9-23); CALCIUM LEVEL 9.2 MG/DL (8.5-10.1); CARBON DIOXIDE LEVEL 27 MMOL/L (20-31); CHLORIDE LEVEL 108 MMOL/L (98-107); CHOLESTEROL LEVEL 150 MG/DL (<200); CHOLESTEROL RISK RATIO 2.69 (<5); GLOMERULAR FILTRATION RATE > 60.0 (>58); GLUCOSE, FASTING 96 MG/DL (60-100); HDL CHOLESTEROL 55.6 MG/DL (>40); LDL CHOLESTEROL 70.2 MG/DL (<100); NON-HDL-C 94.4 MG/DL; SODIUM LEVEL 141 MMOL/L (136-145); TOTAL PROTEIN 7.1 G/DL (5.7-8.2); TRIGLYCERIDES LEVEL 121 MG/DL (<150)
[2022-12-03 16:46] LABS: FREE T4 1.21 NG/DL (0.89-1.76); THYROID STIMULATING HORMONE 0.351 uIU/ML (0.55-4.78)
[2022-12-03 16:47] LABS: TOTAL 25(OH) VITAMIN D 28.7 NG/ML (20.0-100.0)
== END ==
LOC: M PLALAB 12:20
PROVIDERS: ATTEND Physician Assistant Medical
DX: J45.909 Unspecified asthma, uncomplicated (principal); K50.90 Crohn's disease, unspecified, without complications; Z13.220 Encounter for screening for lipoid disorders; E55.9 Vitamin D deficiency, unspecified; F90.1 Attention-deficit hyperactivity disorder, predominantly hyperactive type; F41.0 Panic disorder [episodic paroxysmal anxiety]

== ENCOUNTER → 2023-01-01 | Outpatient (CLI) | payer OTHER | LOC: M WHC 10:48 | PROVIDERS: ATTEND Physician Assistant Medical | DX: Z12.31 Encounter for screening mammogram for malignant neoplasm of breast (principal) ==

== ENCOUNTER → 2023-09-09 | Outpatient (CLI) | payer OTHER ==
[2023-09-09 15:22] LABS: BASO % 0.3 % (0.0-1.0); EOS # 0.3 10^3/uL (0.0-0.5); EOS % 2.7 % (0.0-3.0); HEMATOCRIT 44.4 % (36.0-47.0); HEMOGLOBIN 14.6 g/dl (12.0-15.5); LYMPH # 2.4 10^3/uL (1.5-5.0); LYMPH % 21.7 % (24.0-44.0); MEAN CORPUSCULAR HEMOGLOBIN 29.4 pg (27.0-33.0); MEAN CORPUSCULAR HGB CONC 32.9 g/dl (32.0-36.5); MEAN CORPUSCULAR VOLUME 89.3 fl (80.0-96.0); MONO # 0.8 10^3/uL (0.0-0.8); MONO % 6.8 % (2.0-8.0); NEUTROPHILS # 7.6 10^3/uL (1.5-8.5); NEUTROPHILS % 68.2 % (36.0-66.0); PLATELET COUNT, AUTOMATED 477 10^3/uL (150-450); RED BLOOD COUNT 4.97 10^6/uL (4.00-5.40); WHITE BLOOD COUNT 11.1 10^3/uL (4.0-10.0)
[2023-09-09 15:34] LABS: ALBUMIN 3.4 G/DL (3.2-5.2); ALKALINE PHOSPHATASE 66 U/L (46-116); ALT/SGPT 17 U/L (7.0-40); AST/SGOT 9 U/L (<34); BILIRUBIN,TOTAL 0.3 MG/DL (0.3-1.2); BLOOD UREA NITROGEN < 5 MG/DL (9-23); CALCIUM LEVEL 9.1 MG/DL (8.5-10.1); CARBON DIOXIDE LEVEL 30 MMOL/L (20-31); CHLORIDE LEVEL 105 MMOL/L (98-107); CHOLESTEROL LEVEL 150 MG/DL (<200); CHOLESTEROL RISK RATIO 3.28 (<5); CREATININE FOR GFR 0.69 MG/DL (0.55-1.30); GLOMERULAR FILTRATION RATE > 60.0 (>58); GLUCOSE, FASTING 82 MG/DL (60-100); HDL CHOLESTEROL 45.7 MG/DL (>40); LDL CHOLESTEROL 78.5 MG/DL (<100); NON-HDL-C 104.3 MG/DL; POTASSIUM SERUM 4.9 MMOL/L (3.5-5.1); PTH INTACT 60.6 PG/ML (18.5-88.0); SODIUM LEVEL 140 MMOL/L (136-145); TOTAL PROTEIN 6.7 G/DL (5.7-8.2); TRIGLYCERIDES LEVEL 129 MG/DL (<150)
== END ==
LOC: M PLAIMG 12:34
PROVIDERS: ATTEND Physician Assistant Medical
DX: M25.562 Pain in left knee (principal); M25.561 Pain in right knee; E55.9 Vitamin D deficiency, unspecified; J45.909 Unspecified asthma, uncomplicated; Z13.220 Encounter for screening for lipoid disorders

== ENCOUNTER → 2024-01-04 | Outpatient (CLI) | payer OTHER | LOC: M WHC 13:11 | PROVIDERS: ATTEND Physician Assistant Medical | DX: Z12.31 Encounter for screening mammogram for malignant neoplasm of breast (principal); R92.313 Mammographic fatty tissue density, bilateral breasts; N63.11 Unspecified lump in the right breast, upper outer quadrant ==

== ENCOUNTER → 2024-02-02 | Outpatient (CLI) | payer OTHER | LOC: M WHC 12:47 | PROVIDERS: ATTEND Physician Assistant Medical | DX: R92.8 Other abnormal and inconclusive findings on diagnostic imaging of breast (principal); N63.10 Unspecified lump in the right breast, unspecified quadrant ==

== ENCOUNTER → 2024-08-25 | Outpatient (CLI) | payer OTHER ==
[~2024-08-25] MED LIST changes: -AMBI10TA PO; +PREG-35 PO; -PREG100CA PO; +ZOLP-533 PO
== END ==
LOC: M WHC 09:38
PROVIDERS: ATTEND Physician Assistant Medical
DX: Z12.31 Encounter for screening mammogram for malignant neoplasm of breast (principal)

== ENCOUNTER → 2025-01-08 | Outpatient (REF) | payer OTHER | LOC: M LAB REF 12:43 | DX: K50.914 Crohn's disease, unspecified, with abscess (principal) ==

== ENCOUNTER → 2025-01-09 | Outpatient (CLI) | payer OTHER ==
[2025-01-09 15:59] LABS: PLATELET COUNT, AUTOMATED 325 10^3/uL (150-450)
[2025-01-09 16:04] LABS: ERYTHROCYTE SEDIMENTATION RATE 13 mm/hr (0-20)
[2025-01-09 16:11] LABS: ALT/SGPT 18 U/L (7.0-40); AST/SGOT 16 U/L (<34); C REACTIVE PROTEIN QUANTITATIV < 0.50 MG/DL (<1.0); CALCIUM LEVEL 9.2 MG/DL (8.5-10.1); CARBON DIOXIDE LEVEL 28 MMOL/L (20-31); CHLORIDE LEVEL 106 MMOL/L (98-107); CREATININE FOR GFR 0.77 MG/DL (0.55-1.30); GLOMERULAR FILTRATION RATE > 90.0 (>58); POTASSIUM SERUM 4.5 MMOL/L (3.5-5.1); SODIUM LEVEL 142 MMOL/L (136-145)
== END ==
LOC: M PLALAB 10:58
DX: K50.914 Crohn's disease, unspecified, with abscess (principal)